=== PATIENT | female | born 1985 | race Caucasian/White ===

== ENCOUNTER 2021-07-30 18:14 | Inpatient (IN) | payer OTHER ==
[2021-07-30] MEDS ORDERED: MEROPENEM 500 MG in DEXTROSE 5%-WATER 100 ML IVPB ONE (21:46)
[2021-07-30] MEDS ORDERED: MEROPENEM 1 GM VIAL (RESTRICTED TO ID) IVPB ONE (22:08)
[2021-07-30] MEDS ORDERED: MEROPENEM 500 MG VIAL (RESTRICTED TO ID) IVPB ONE (22:17)
[2021-07-30 23:11] LABS: BASO % 0.3 % (0-2.0); EOS % 1.6 % (0-4.5); HEMATOCRIT 42.1 % (32.4-45.2); HEMOGLOBIN 14.4 GM/dL (10.7-15.3); LYMPH % 26.7 % (8-40); MCH 29.8 pg (25.7-33.7); MCHC 34.2 g/dl (32.0-36.0); MEAN CELL VOLUME 87.1 fl (80-96); MEAN PLT VOLUME 7.1 fl (7.5-11.1); MONO % 7.6 % (3.8-10.2); NEUT % 63.8 % (42.8-82.8); PLATELET COUNT 278 10^3/uL (134-434); RBC 4.84 M/mm3 (3.60-5.2); RDW 12.6 % (11.6-15.6); WHITE BLOOD COUNT 5.9 K/mm3 (4.0-10.0)
[2021-07-30 23:17] LABS: INR 1.07 (0.83-1.09)
[2021-07-30 23:20] LABS: ACTIVATED PTT 36.1 SECONDS (25.2-36.5)
[2021-07-30 23:24] LABS: EPI CELLS >36 /uL (0-25.1); HYALINE CASTS 4 /uL (0-3.1); PH,URINE 7.5 (5.0-8.0); URINE APPEARANCE CLOUDY; URINE BACTERIA 5852 /uL (0-1359); URINE BILIRUBIN NEGATIVE (NEGATIVE); URINE COLOR YELLOW; URINE GLUCOSE (UA) NEGATIVE (NEGATIVE); URINE KETONE NEGATIVE (NEGATIVE); URINE LEUK ESTERASE 3+ (NEGATIVE); URINE NITRITE POSITIVE (NEGATIVE); URINE PROTEIN NEGATIVE (NEGATIVE); URINE RBC 14 /uL (0-23.9); URINE UROBILINOGEN 0.2 mg/dL (0.2-1.0); URINE WBC 581 /uL (0-25.8)
[2021-07-30 23:36] LABS: ALBUMIN 3.4 g/dl (3.4-5.0); BLOOD UREA NITROGEN 5.6 mg/dL (7-18); CALCIUM 8.8 mg/dL (8.5-10.1)
[2021-07-30 23:39] LABS: CREATININE 0.4 mg/dL (0.55-1.3)
[2021-07-30 23:40] LABS: BILIRUBIN,TOTAL 0.3 mg/dL (0.2-1); TOT PROT 7.8 g/dl (6.4-8.2)
[2021-07-31] MEDS ORDERED: [UNRECOGNIZED DRUG - OTHER] PO SCH (02:00)
[2021-07-31] MEDS ORDERED: ACETAMINOPHEN PO SCH (02:00)
[2021-07-31] MEDS ORDERED: IBUPROFEN 100 MG/5 ML UNIT DOSE CUPS PEG PRN (02:00)
[2021-07-31 04:31] VITALS: BMI 14.8
[2021-07-31] MEDS ORDERED: DEXTROSE 5%-WATER 100 ML IVPB ONE ×3 (06:10→16:28)
[2021-07-31] MEDS ORDERED: MEROPENEM 500 MG VIAL (RESTRICTED TO ID) IVPB ONE ×3 (06:10→16:28)
[2021-07-31] MEDS: MEROPENEM 500 MG in DEXTROSE 5%-WATER 100 ML IVPB SCH ×3 (06:13→18:11)
[2021-07-31] MEDS: LEVOTHYROXINE NA 75 MCG TABLET (FP) PEG SCH (06:14)
[2021-07-31] MEDS: INSULIN SLIDING SCALE (NOVOLOG) 1 VIAL SQ SCH ×4 (07:10→21:33)
[2021-07-31] MEDS: IPRATROPIUM BR 0.02% 0.5 MG/2.5 ML VIAL.NEB. NEB SCH ×4 (07:50→20:13)
[2021-07-31 08:19] LABS: HEMATOCRIT 38.5 % (32.4-45.2); HEMOGLOBIN 13.3 GM/dL (10.7-15.3); MCH 30.3 pg (25.7-33.7); MCHC 34.7 g/dl (32.0-36.0); MEAN CELL VOLUME 87.3 fl (80-96); MEAN PLT VOLUME 6.9 fl (7.5-11.1); PLATELET COUNT 285 10^3/uL (134-434); RBC 4.41 M/mm3 (3.60-5.2); RDW 12.6 % (11.6-15.6); WHITE BLOOD COUNT 5.6 K/mm3 (4.0-10.0)
[2021-07-31 08:51] LABS: ALBUMIN 2.8 g/dl (3.4-5.0); BILIRUBIN,TOTAL 0.3 mg/dL (0.2-1)
[2021-07-31 08:52] LABS: CALCIUM 8.6 mg/dL (8.5-10.1); MAGNESIUM 1.5 mg/dL (1.8-2.4)
[2021-07-31 08:55] LABS: CREATININE 0.4 mg/dL (0.55-1.3); PHOSPHOROUS 4.2 mg/dL (2.5-4.9)
[2021-07-31] MEDS ORDERED: ENOXAPARIN NA (PORCINE) 30 MG/0.3 ML DISP.SYRIN SQ SCH (10:00)
[2021-07-31] MEDS ORDERED: PATIENT'S OWN MEDICATION (NON-FORMULARY) (Sennosides [Senna] 8.6 MG Capsule) PO SCH (10:00)
[2021-07-31] MEDS ORDERED: NEOMYCIN/BACI/POLY/HC TOPICAL OINT 15 GM TUBE TP SCH (10:00)
[2021-07-31] MEDS ORDERED: PT OWN MED DRAWER 7, Y5N ONE ×2 (10:04→14:02)
[2021-07-31] MEDS: ENOXAPARIN NA (PORCINE) 30 MG/0.3 ML DISP.SYRIN SQ SCH (11:02)
[2021-07-31] MEDS: Lacosamide 50 MG/5 ML ORAL SOLUTION UNIT CUPS PEG SCH ×2 (11:08→21:32)
[2021-07-31] MEDS: FAMOTIDINE 40 MG/5 ML ORAL SUSPENSION PEG SCH (15:12)
[2021-07-31] MEDS ORDERED: INSULIN (NOVOLOG) ASPART 100 UNITS/ML 10ML VIAL ONE (20:38)
[2021-07-31] MEDS: PERAMPANEL 2 MG GT SCH (21:21)
[2021-07-31] MEDS: MAGNESIUM HYDROX 2400MG/30ML ORAL SUSPENSION 30 ML CUP PEG SCH (21:31)
[2021-07-31] MEDS: SENNOSIDES 8.8 MG/5 ML BULK BOTTLE PEG SCH (21:33)
[2021-07-31] MEDS: [UNRECOGNIZED DRUG - OTHER] PO SCH (21:34)
[2021-07-31] MEDS: TACROLIMUS 0.1% PO SCH (21:34)
[2021-08-01] MEDS ORDERED: MEROPENEM 500 MG VIAL (RESTRICTED TO ID) IVPB ONE ×3 (01:22→17:08)
[2021-08-01] MEDS ORDERED: DEXTROSE 5%-WATER 100 ML IVPB ONE ×3 (01:22→17:08)
[2021-08-01] MEDS: MEROPENEM 500 MG in DEXTROSE 5%-WATER 100 ML IVPB SCH ×3 (01:26→17:19)
[2021-08-01] MEDS: INSULIN SLIDING SCALE (NOVOLOG) 1 VIAL SQ SCH ×4 (06:24→21:43)
[2021-08-01] MEDS: LEVOTHYROXINE NA 75 MCG TABLET (FP) PEG SCH (06:26)
[2021-08-01] MEDS: IPRATROPIUM BR 0.02% 0.5 MG/2.5 ML VIAL.NEB. NEB SCH ×4 (07:35→20:00)
[2021-08-01 08:00] LABS: BASO % 0.4 % (0-2.0); EOS % 2.3 % (0-4.5); HEMOGLOBIN 13.5 GM/dL (10.7-15.3); LYMPH % 22.5 % (8-40); MCHC 34.7 g/dl (32.0-36.0); MEAN CELL VOLUME 86.5 fl (80-96); MEAN PLT VOLUME 6.9 fl (7.5-11.1); MONO % 9.9 % (3.8-10.2); NEUT % 64.9 % (42.8-82.8); PLATELET COUNT 269 10^3/uL (134-434); RDW 12.3 % (11.6-15.6); WHITE BLOOD COUNT 5.1 K/mm3 (4.0-10.0)
[2021-08-01 08:27] LABS: BLOOD UREA NITROGEN 10.5 mg/dL (7-18); CALCIUM 8.8 mg/dL (8.5-10.1); MAGNESIUM 2.2 mg/dL (1.8-2.4)
[2021-08-01 08:30] LABS: BILIRUBIN,TOTAL 0.3 mg/dL (0.2-1); CREATININE 0.4 mg/dL (0.55-1.3)
[2021-08-01] MEDS ORDERED: NEOMYCIN/BACI/POLY/HC TOPICAL OINT 15 GM TUBE TP SCH (10:00)
[2021-08-01] MEDS: ENOXAPARIN NA (PORCINE) 30 MG/0.3 ML DISP.SYRIN SQ SCH (10:20)
[2021-08-01] MEDS: MAGNESIUM HYDROX 2400MG/30ML ORAL SUSPENSION 30 ML CUP PEG SCH (10:21)
[2021-08-01] MEDS: FAMOTIDINE 40 MG/5 ML ORAL SUSPENSION PEG SCH (10:21)
[2021-08-01] MEDS: SENNOSIDES 8.8 MG/5 ML BULK BOTTLE PEG SCH (10:22)
[2021-08-01] MEDS: Lacosamide 50 MG/5 ML ORAL SOLUTION UNIT CUPS PEG SCH ×2 (10:23→21:44)
[2021-08-01] MEDS: TACROLIMUS 0.1% PO SCH ×2 (10:24→21:45)
[2021-08-01] MEDS: [UNRECOGNIZED DRUG - OTHER] PO SCH ×2 (10:24→21:45)
[2021-08-01] MEDS ORDERED: PT OWN MED DRAWER 7, Y5N ONE (10:28)
[2021-08-01] MEDS: PERAMPANEL 2 MG GT SCH (21:44)
[2021-08-02] MEDS ORDERED: MEROPENEM 500 MG VIAL (RESTRICTED TO ID) IVPB ONE ×3 (01:15→17:41)
[2021-08-02] MEDS ORDERED: DEXTROSE 5%-WATER 100 ML IVPB ONE ×3 (01:16→17:41)
[2021-08-02] MEDS: MEROPENEM 500 MG in DEXTROSE 5%-WATER 100 ML IVPB SCH ×3 (01:54→17:48)
[2021-08-02] MEDS: LEVOTHYROXINE NA 75 MCG TABLET (FP) PEG SCH (06:16)
[2021-08-02] MEDS: INSULIN SLIDING SCALE (NOVOLOG) 1 VIAL SQ SCH ×4 (06:16→22:07)
[2021-08-02 07:46] LABS: BASO % 0.5 % (0-2.0); HEMATOCRIT 41.5 % (32.4-45.2); HEMOGLOBIN 14.4 GM/dL (10.7-15.3); LYMPH % 27.2 % (8-40); MCH 30.2 pg (25.7-33.7); MCHC 34.6 g/dl (32.0-36.0); MEAN CELL VOLUME 87.2 fl (80-96); MEAN PLT VOLUME 7.6 fl (7.5-11.1); MONO % 11.6 % (3.8-10.2); NEUT % 58.7 % (42.8-82.8); PLATELET COUNT 279 10^3/uL (134-434); RBC 4.76 M/mm3 (3.60-5.2); RDW 12.3 % (11.6-15.6); WHITE BLOOD COUNT 4.6 K/mm3 (4.0-10.0)
[2021-08-02] MEDS: IPRATROPIUM BR 0.02% 0.5 MG/2.5 ML VIAL.NEB. NEB SCH ×4 (08:07→19:47)
[2021-08-02 08:22] LABS: ALBUMIN 3.1 g/dl (3.4-5.0); BLOOD UREA NITROGEN 5.4 mg/dL (7-18)
[2021-08-02 08:23] LABS: BILIRUBIN,TOTAL 0.2 mg/dL (0.2-1); TOT PROT 7.4 g/dl (6.4-8.2)
[2021-08-02 08:25] LABS: CALCIUM 9.1 mg/dL (8.5-10.1)
[2021-08-02 08:26] LABS: CREATININE 0.3 mg/dL (0.55-1.3); MAGNESIUM 2.3 mg/dL (1.8-2.4)
[2021-08-02] MEDS ORDERED: PT OWN MED DRAWER 7, Y5N ONE (10:40)
[2021-08-02] MEDS: ENOXAPARIN NA (PORCINE) 30 MG/0.3 ML DISP.SYRIN SQ SCH (10:46)
[2021-08-02] MEDS: MAGNESIUM HYDROX 2400MG/30ML ORAL SUSPENSION 30 ML CUP PEG SCH (10:46)
[2021-08-02] MEDS: FAMOTIDINE 40 MG/5 ML ORAL SUSPENSION PEG SCH (10:47)
[2021-08-02] MEDS: SENNOSIDES 8.8 MG/5 ML BULK BOTTLE PEG SCH (10:48)
[2021-08-02] MEDS: Lacosamide 50 MG/5 ML ORAL SOLUTION UNIT CUPS PEG SCH ×2 (10:48→22:17)
[2021-08-02] MEDS: TACROLIMUS 0.1% PO SCH ×3 (10:50→22:18)
[2021-08-02] MEDS: [UNRECOGNIZED DRUG - OTHER] PO SCH ×3 (10:50→22:18)
[2021-08-02] MEDS ORDERED: INSULIN (NOVOLOG) ASPART 100 UNITS/ML 10ML VIAL ONE (11:51)
[2021-08-02] MEDS ORDERED: BISACODYL 10 MG SUPP.RECT PR PRN (14:22)
[2021-08-02] MEDS: PERAMPANEL 2 MG GT SCH (22:16)
[2021-08-03] MEDS ORDERED: DEXTROSE 5%-WATER 100 ML IVPB ONE ×3 (03:08→18:26)
[2021-08-03] MEDS ORDERED: MEROPENEM 500 MG VIAL (RESTRICTED TO ID) IVPB ONE ×3 (03:08→18:26)
[2021-08-03] MEDS: MEROPENEM 500 MG in DEXTROSE 5%-WATER 100 ML IVPB SCH ×3 (03:10→18:28)
[2021-08-03] MEDS: LEVOTHYROXINE NA 75 MCG TABLET (FP) PEG SCH (06:22)
[2021-08-03] MEDS: INSULIN SLIDING SCALE (NOVOLOG) 1 VIAL SQ SCH ×4 (06:52→23:24)
[2021-08-03] MEDS: IPRATROPIUM BR 0.02% 0.5 MG/2.5 ML VIAL.NEB. NEB SCH ×4 (09:02→20:18)
[2021-08-03 09:31] LABS: BASO % 0.4 % (0-2.0); HEMATOCRIT 39.5 % (32.4-45.2); HEMOGLOBIN 13.8 GM/dL (10.7-15.3); LYMPH % 29.7 % (8-40); MCHC 34.9 g/dl (32.0-36.0); MEAN CELL VOLUME 85.9 fl (80-96); NEUT % 54.9 % (42.8-82.8); PLATELET COUNT 268 10^3/uL (134-434); RDW 12.5 % (11.6-15.6)
[2021-08-03] MEDS: Lacosamide 50 MG/5 ML ORAL SOLUTION UNIT CUPS PEG SCH ×2 (10:15→22:36)
[2021-08-03] MEDS: MAGNESIUM HYDROX 2400MG/30ML ORAL SUSPENSION 30 ML CUP PEG SCH (10:15)
[2021-08-03] MEDS: FAMOTIDINE 40 MG/5 ML ORAL SUSPENSION PEG SCH (10:15)
[2021-08-03] MEDS: ENOXAPARIN NA (PORCINE) 30 MG/0.3 ML DISP.SYRIN SQ SCH (10:16)
[2021-08-03] MEDS: SENNOSIDES 8.8 MG/5 ML BULK BOTTLE PEG SCH (10:16)
[2021-08-03] MEDS: [UNRECOGNIZED DRUG - OTHER] PO SCH ×2 (10:17→22:37)
[2021-08-03] MEDS: TACROLIMUS 0.1% PO SCH ×2 (10:17→22:37)
[2021-08-03 10:37] LABS: ALBUMIN 3.1 g/dl (3.4-5.0); BLOOD UREA NITROGEN 8.1 mg/dL (7-18); CALCIUM 8.5 mg/dL (8.5-10.1); MAGNESIUM 2.3 mg/dL (1.8-2.4)
[2021-08-03 10:40] LABS: CREATININE 0.4 mg/dL (0.55-1.3)
[2021-08-03 10:42] LABS: BILIRUBIN,TOTAL 0.2 mg/dL (0.2-1); TOT PROT 7.3 g/dl (6.4-8.2)
[2021-08-03] MEDS ORDERED: PT OWN MED DRAWER 7, Y5N ONE (18:06)
[2021-08-03] MEDS: PERAMPANEL 2 MG GT SCH (22:35)
[2021-08-04] MEDS ORDERED: DEXTROSE 5%-WATER 100 ML IVPB ONE ×3 (01:51→17:00)
[2021-08-04] MEDS ORDERED: MEROPENEM 500 MG VIAL (RESTRICTED TO ID) IVPB ONE ×3 (01:51→17:00)
[2021-08-04] MEDS: MEROPENEM 500 MG in DEXTROSE 5%-WATER 100 ML IVPB SCH ×3 (01:55→17:14)
[2021-08-04] MEDS: INSULIN SLIDING SCALE (NOVOLOG) 1 VIAL SQ SCH ×4 (06:07→22:43)
[2021-08-04] MEDS: LEVOTHYROXINE NA 75 MCG TABLET (FP) PEG SCH (06:07)
[2021-08-04] MEDS: IPRATROPIUM BR 0.02% 0.5 MG/2.5 ML VIAL.NEB. NEB SCH ×4 (07:22→20:16)
[2021-08-04 07:45] LABS: CALCIUM 8.6 mg/dL (8.5-10.1)
[2021-08-04 07:46] LABS: BASO % 0.2 % (0-2.0); BLOOD UREA NITROGEN 7.4 mg/dL (7-18); EOS % 2.6 % (0-4.5); HEMATOCRIT 39.1 % (32.4-45.2); HEMOGLOBIN 13.8 GM/dL (10.7-15.3); LYMPH % 30.7 % (8-40); MAGNESIUM 2.4 mg/dL (1.8-2.4); MCH 30.8 pg (25.7-33.7); MCHC 35.3 g/dl (32.0-36.0); MEAN CELL VOLUME 87.1 fl (80-96); MEAN PLT VOLUME 7.2 fl (7.5-11.1); MONO % 14.9 % (3.8-10.2); NEUT % 51.6 % (42.8-82.8); PLATELET COUNT 274 10^3/uL (134-434); RBC 4.49 M/mm3 (3.60-5.2); RDW 12.3 % (11.6-15.6)
[2021-08-04 07:49] LABS: CREATININE 0.4 mg/dL (0.55-1.3)
[2021-08-04 07:50] LABS: BILIRUBIN,TOTAL 0.2 mg/dL (0.2-1)
[2021-08-04] MEDS ORDERED: PT OWN MED DRAWER 7, Y5N ONE ×2 (09:50→22:37)
[2021-08-04] MEDS: FAMOTIDINE 40 MG/5 ML ORAL SUSPENSION PEG SCH (10:14)
[2021-08-04] MEDS: MAGNESIUM HYDROX 2400MG/30ML ORAL SUSPENSION 30 ML CUP PEG SCH (10:15)
[2021-08-04] MEDS: Lacosamide 50 MG/5 ML ORAL SOLUTION UNIT CUPS PEG SCH ×2 (10:15→23:48)
[2021-08-04] MEDS: ENOXAPARIN NA (PORCINE) 30 MG/0.3 ML DISP.SYRIN SQ SCH (10:15)
[2021-08-04] MEDS: SENNOSIDES 8.8 MG/5 ML BULK BOTTLE PEG SCH (10:16)
[2021-08-04] MEDS: TACROLIMUS 0.1% PO SCH ×2 (10:17→22:45)
[2021-08-04] MEDS: [UNRECOGNIZED DRUG - OTHER] PO SCH ×2 (10:17→22:45)
[2021-08-04] MEDS: PERAMPANEL 2 MG GT SCH (22:48)
[2021-08-05] MEDS ORDERED: DEXTROSE 5%-WATER 100 ML IVPB ONE ×3 (01:21→17:15)
[2021-08-05] MEDS ORDERED: MEROPENEM 500 MG VIAL (RESTRICTED TO ID) IVPB ONE ×3 (01:21→17:14)
[2021-08-05] MEDS: MEROPENEM 500 MG in DEXTROSE 5%-WATER 100 ML IVPB SCH ×3 (01:23→17:16)
[2021-08-05] MEDS: INSULIN SLIDING SCALE (NOVOLOG) 1 VIAL SQ SCH ×4 (06:11→22:34)
[2021-08-05] MEDS: LEVOTHYROXINE NA 75 MCG TABLET (FP) PEG SCH (06:50)
[2021-08-05 06:52] LABS: BASO % 0.3 % (0-2.0); EOS % 2.3 % (0-4.5); HEMATOCRIT 38.3 % (32.4-45.2); HEMOGLOBIN 13.5 GM/dL (10.7-15.3); LYMPH % 36.4 % (8-40); MCH 30.5 pg (25.7-33.7); MCHC 35.3 g/dl (32.0-36.0); MEAN CELL VOLUME 86.4 fl (80-96); MEAN PLT VOLUME 7.3 fl (7.5-11.1); MONO % 13.8 % (3.8-10.2); NEUT % 47.2 % (42.8-82.8); PLATELET COUNT 294 10^3/uL (134-434); RBC 4.43 M/mm3 (3.60-5.2); RDW 11.9 % (11.6-15.6)
[2021-08-05 07:14] LABS: ALBUMIN 2.9 g/dl (3.4-5.0); BLOOD UREA NITROGEN 8.4 mg/dL (7-18); CALCIUM 8.6 mg/dL (8.5-10.1); MAGNESIUM 2.4 mg/dL (1.8-2.4)
[2021-08-05 07:18] LABS: CREATININE 0.3 mg/dL (0.55-1.3)
[2021-08-05 07:19] LABS: BILIRUBIN,TOTAL 0.2 mg/dL (0.2-1); TOT PROT 6.9 g/dl (6.4-8.2)
[2021-08-05] MEDS: IPRATROPIUM BR 0.02% 0.5 MG/2.5 ML VIAL.NEB. NEB SCH ×4 (07:20→20:22)
[2021-08-05] MEDS: MAGNESIUM HYDROX 2400MG/30ML ORAL SUSPENSION 30 ML CUP PEG SCH (09:36)
[2021-08-05] MEDS: FAMOTIDINE 40 MG/5 ML ORAL SUSPENSION PEG SCH (09:37)
[2021-08-05] MEDS: Lacosamide 50 MG/5 ML ORAL SOLUTION UNIT CUPS PEG SCH ×2 (09:38→22:28)
[2021-08-05] MEDS: ENOXAPARIN NA (PORCINE) 30 MG/0.3 ML DISP.SYRIN SQ SCH (09:41)
[2021-08-05] MEDS: [UNRECOGNIZED DRUG - OTHER] PO SCH ×2 (09:42→22:32)
[2021-08-05] MEDS: TACROLIMUS 0.1% PO SCH ×2 (09:42→22:32)
[2021-08-05] MEDS: SENNOSIDES 8.8 MG/5 ML BULK BOTTLE PEG SCH (11:24)
[2021-08-05] MEDS ORDERED: PT OWN MED DRAWER 7, Y5N ONE (22:25)
[2021-08-05] MEDS: PERAMPANEL 2 MG GT SCH (22:31)
[2021-08-06] MEDS: MEROPENEM 500 MG in DEXTROSE 5%-WATER 100 ML IVPB SCH ×2 (02:30→10:02)
[2021-08-06] MEDS: INSULIN SLIDING SCALE (NOVOLOG) 1 VIAL SQ SCH ×2 (07:18→11:55)
[2021-08-06] MEDS: LEVOTHYROXINE NA 75 MCG TABLET (FP) PEG SCH (07:19)
[2021-08-06] MEDS: IPRATROPIUM BR 0.02% 0.5 MG/2.5 ML VIAL.NEB. NEB SCH ×2 (07:50→12:30)
[2021-08-06 08:33] LABS: BASO % 0.4 % (0-2.0); EOS % 3.5 % (0-4.5); HEMATOCRIT 39.5 % (32.4-45.2); HEMOGLOBIN 13.7 GM/dL (10.7-15.3); MCH 30.2 pg (25.7-33.7); MCHC 34.8 g/dl (32.0-36.0); MEAN CELL VOLUME 86.7 fl (80-96); MEAN PLT VOLUME 7.4 fl (7.5-11.1); MONO % 15.7 % (3.8-10.2); NEUT % 36.4 % (42.8-82.8); PLATELET COUNT 277 10^3/uL (134-434); RBC 4.55 M/mm3 (3.60-5.2); RDW 12.4 % (11.6-15.6); WHITE BLOOD COUNT 3.7 K/mm3 (4.0-10.0)
[2021-08-06 08:56] LABS: BLOOD UREA NITROGEN 8.4 mg/dL (7-18); MAGNESIUM 2.4 mg/dL (1.8-2.4)
[2021-08-06 08:59] LABS: CREATININE 0.3 mg/dL (0.55-1.3)
[2021-08-06 09:01] LABS: BILIRUBIN,TOTAL 0.3 mg/dL (0.2-1)
[2021-08-06] MEDS ORDERED: PT OWN MED DRAWER 7, Y5N ONE (09:56)
[2021-08-06] MEDS: Lacosamide 50 MG/5 ML ORAL SOLUTION UNIT CUPS PEG SCH (09:58)
[2021-08-06] MEDS: ENOXAPARIN NA (PORCINE) 30 MG/0.3 ML DISP.SYRIN SQ SCH (09:58)
[2021-08-06] MEDS: MAGNESIUM HYDROX 2400MG/30ML ORAL SUSPENSION 30 ML CUP PEG SCH (10:00)
[2021-08-06] MEDS: [UNRECOGNIZED DRUG - OTHER] PO SCH (10:02)
[2021-08-06] MEDS: TACROLIMUS 0.1% PO SCH (10:02)
[2021-08-06] MEDS: FAMOTIDINE 40 MG/5 ML ORAL SUSPENSION PEG SCH (10:02)
[2021-08-06] MEDS: SENNOSIDES 8.8 MG/5 ML BULK BOTTLE PEG SCH (10:06)
[2021-08-06 11:36] VITALS: BP 138/80; PULSE 85; TEMP 98
== END 2021-08-06 13:47 | disposition home or self-care (01) | DRG 689 ==
LOC: JER 18:14 → JERBED 23:50 → J7W 07-31 03:18
PROVIDERS: ADMIT Internal Medicine; ATTEND Nurse Practitioner Family
DX: N39.0 Urinary tract infection, site not specified (principal); R53.2 Functional quadriplegia; G31.82 Leigh's disease; F73 Profound intellectual disabilities; G40.909 Epilepsy, unspecified, not intractable, without status epilepticus; E03.9 Hypothyroidism, unspecified; E11.9 Type 2 diabetes mellitus without complications; L30.9 Dermatitis, unspecified; M41.9 Scoliosis, unspecified; K59.00 Constipation, unspecified; E06.3 Autoimmune thyroiditis
CPT/HCPCS: 36415; 71045-TC-FY; 80053; 81003; 82962; 83605; 83735; 84100; 85025; 85027; 85610; 85730; 87040; 87086; 87186; 93005; 93010; 94640; 99285-25; C9803; U0003; U0005

== ENCOUNTER 2021-12-05 04:54 | Inpatient (IN) | payer OTHER ==
[2021-12-05] MEDS ORDERED: RAPID SEQUENCE INTUBATION KIT NR ONE (04:56)
[2021-12-05] MEDS ORDERED: PROPOFOL 1,000,000 MCG/100 ML VIAL ONE (05:13)
[2021-12-05] MEDS ORDERED: DEXAMETHASONE SOD PHOSPHATE 10 MG/1 ML VIAL ONE (05:24)
[2021-12-05] MEDS ORDERED: ETOMIDATE 40 MG/20 ML VIAL IVPUSH ONE (05:30)
[2021-12-05] MEDS ORDERED: PROPOFOL 1,000,000 MCG/100 ML VIAL IVPB SCH (05:30)
[2021-12-05] MEDS ORDERED: ROCURONIUM BROMIDE 50 MG/5 ML VIAL IV ONE (05:30)
[2021-12-05] MEDS ORDERED: DEXAMETHASONE SOD PHOSPHATE 4 MG/1 ML VIAL IVPUSH ONE (05:35)
[2021-12-05 05:51] LABS: ARTERIAL BLD GAS O2 SATURATION 99.9 % (95-98); ARTERIAL BLOOD GAS BASE EXCESS -3.4 mmol/L (-2-2); ARTERIAL BLOOD GAS pH 7.388 (7.350-7.450)
[2021-12-05 05:55] LABS: INR 1.01 (0.83-1.09); PROTHROMBIN TIME (PATIENT) 11.6 SEC (9.7-13.0)
[2021-12-05 05:58] LABS: ACTIVATED PTT 21.7 SECONDS (25.2-36.5)
[2021-12-05 06:15] LABS: EPI CELLS >36 /uL (0-25.1); HYALINE CASTS 119 /uL (0-3.1); PH,URINE 7.5 (5.0-8.0); URINE APPEARANCE TURBID; URINE BACTERIA >9,000 /uL (0-1359); URINE BILIRUBIN NEGATIVE (NEGATIVE); URINE COLOR YELLOW; URINE GLUCOSE (UA) NEGATIVE (NEGATIVE); URINE KETONE NEGATIVE (NEGATIVE); URINE LEUK ESTERASE 3+ (NEGATIVE); URINE NITRITE POSITIVE (NEGATIVE); URINE PROTEIN 2+ (NEGATIVE); URINE UROBILINOGEN 0.2 mg/dL (0.2-1.0); URINE WBC 18215 /uL (0-25.8)
[2021-12-05] MEDS ORDERED: MEROPENEM 1 GM in DEXTROSE 5%-WATER 100 ML IVPB ONE (06:22)
[2021-12-05] MEDS ORDERED: VANCOMYCIN 1 GM in D5W (PRE-DOCKED) 1,000 MG/250 ML IVPB ONE (06:22)
[2021-12-05 06:23] LABS: BASO % 0.4 % (0-2.0); EOS % 0.7 % (0-4.5); HEMATOCRIT 42.9 % (32.4-45.2); HEMOGLOBIN 14.9 GM/dL (10.7-15.3); MCH 30.2 pg (25.7-33.7); MCHC 34.7 g/dl (32.0-36.0); MEAN CELL VOLUME 86.9 fl (80-96); MEAN PLT VOLUME 8.3 fl (7.5-11.1); MONO % 6.4 % (3.8-10.2); NEUT % 72.5 % (42.8-82.8); PLATELET COUNT 342 10^3/uL (134-434); RBC 4.94 M/mm3 (3.60-5.2); RDW 12.8 % (11.6-15.6); WHITE BLOOD COUNT 12.3 K/mm3 (4.0-10.0)
[2021-12-05] MEDS ORDERED: VANCOMYCIN 1 GRAM (PRE-DOCKED) 1,000 MG/250 ML BAG IVPB ONE (06:35)
[2021-12-05 06:50] LABS: CALCIUM 8.1 mg/dL (8.5-10.1)
[2021-12-05 06:52] LABS: ALBUMIN 3.1 g/dl (3.4-5.0)
[2021-12-05 06:55] LABS: CREATININE 0.5 mg/dL (0.55-1.3)
[2021-12-05 06:57] LABS: BILIRUBIN,TOTAL 0.2 mg/dL (0.2-1); TOT PROT 7.4 g/dl (6.4-8.2)
[2021-12-05 07:00] LABS: N-TERMINAL BNP 3610.4 pg/ml (5-125)
[2021-12-05] MEDS ORDERED: FUROSEMIDE 40 MG/4 ML INJECTABLE VIAL IVPUSH ONE (07:02)
[2021-12-05] MEDS ORDERED: MIDAZOLAM IN 0.9 % SOD.CHLORID 1 MG/1 ML PLAST..BAG ONE (07:33)
[2021-12-05] MEDS ORDERED: MEROPENEM 1 GM VIAL (RESTRICTED TO ID) IVPB ONE ×2 (07:33→17:56)
[2021-12-05] MEDS ORDERED: FUROSEMIDE 40 MG/4 ML INJECTABLE VIAL ONE (07:34)
[2021-12-05] MEDS: MIDAZOLAM IN 0.9 % SOD.CHLORID 100 MG/100 ML PLAST..BAG IVPB SCH (07:45)
[2021-12-05] MEDS ORDERED: NOREPINEPHRINE BITARTRATE 4 MG/4 ML ML IV ONE ×2 (09:29→09:30)
[2021-12-05] MEDS: NOREPINEPHRINE D5W PREMIX 16,000 MCG/500 ML BAG IVPB SCH (09:44)
[2021-12-05] MEDS ORDERED: SODIUM CHLORIDE 500 ML IV STA (14:45)
[2021-12-05] MEDS ORDERED: SODIUM CHLORIDE 1,000 ML IV SCH (15:45)
[2021-12-05 17:50] LABS: ALBUMIN 3.3 g/dl (3.4-5.0); BLOOD UREA NITROGEN 9.3 mg/dL (7-18); CALCIUM 8.9 mg/dL (8.5-10.1); MAGNESIUM 1.8 mg/dL (1.8-2.4)
[2021-12-05 17:54] LABS: CREATININE 0.6 mg/dL (0.55-1.3)
[2021-12-05 17:56] LABS: BILIRUBIN,TOTAL 0.3 mg/dL (0.2-1); TOT PROT 7.3 g/dl (6.4-8.2)
[2021-12-05] MEDS ORDERED: DEXTROSE 5%-WATER 100 ML IVPB ONE (17:56)
[2021-12-05] MEDS ORDERED: MEROPENEM 1 GM in DEXTROSE 5%-WATER 100 ML IVPB SCH (18:00)
[2021-12-05] MEDS: DEXMEDETOMIDINE IN 0.9 % NACL 400 MCG/100 ML VIAL IVPB SCH (18:09)
[2021-12-05] MEDS: MEROPENEM 1 GM in DEXTROSE 5%-WATER 100 ML IVPB SCH (18:09)
[2021-12-05] MEDS ORDERED: SODIUM CHLORIDE 0.45% 1,000 ML IV SCH (18:15)
[2021-12-05] MEDS: MUPIROCIN 2% TOPICAL OINTMENT FOR DECOLONIZATION NS SCH ×2 (19:23→22:10)
[2021-12-05] MEDS: levOCARNitine 500 MG/5 ML SOLUTION GT SCH (22:09)
[2021-12-05] MEDS: CHLORHEXIDINE GLUCONATE 4% CLEANSER FOR DECOLONIZATION TP SCH (22:10)
[2021-12-05] MEDS ORDERED: diazePAM CARPU-JECT 10 MG/2 ML DISP.SYRIN IVPUSH PRN (23:16)
[2021-12-05 23:19] LABS: CALCIUM 7.6 mg/dL (8.5-10.1)
[2021-12-05 23:20] LABS: BLOOD UREA NITROGEN 8.5 mg/dL (7-18)
[2021-12-05 23:23] LABS: CREATININE 0.5 mg/dL (0.55-1.3)
[2021-12-06] MEDS: Lacosamide 50 MG/5 ML ORAL SOLUTION UNIT CUPS GT SCH ×3 (00:21→21:33)
[2021-12-06] MEDS ORDERED: DEXTROSE 5%-WATER 100 ML IVPB ONE ×3 (02:09→16:27)
[2021-12-06] MEDS ORDERED: MEROPENEM 1 GM VIAL (RESTRICTED TO ID) IVPB ONE ×3 (02:09→16:27)
[2021-12-06] MEDS: MEROPENEM 1 GM in DEXTROSE 5%-WATER 100 ML IVPB SCH ×3 (02:11→18:00)
[2021-12-06 03:46] LABS: BLOOD UREA NITROGEN 9.2 mg/dL (7-18); CALCIUM 7.8 mg/dL (8.5-10.1)
[2021-12-06 03:49] LABS: CREATININE 0.5 mg/dL (0.55-1.3)
[2021-12-06] MEDS: LEVOTHYROXINE NA 75 MCG TABLET (FP) PEG SCH (06:12)
[2021-12-06] MEDS: VANCOMYCIN 1 GRAM (PRE-DOCKED) 1,000 MG/250 ML BAG IVPB SCH (06:14)
[2021-12-06] MEDS: levOCARNitine 500 MG/5 ML SOLUTION GT SCH ×3 (06:14→21:33)
[2021-12-06 07:54] LABS: HEMATOCRIT 36.4 % (32.4-45.2); MCH 30.3 pg (25.7-33.7); MCHC 35.6 g/dl (32.0-36.0); PLATELET COUNT 240 10^3/uL (134-434); RBC 4.28 M/mm3 (3.60-5.2); RDW 12.5 % (11.6-15.6); WHITE BLOOD COUNT 8.6 K/mm3 (4.0-10.0)
[2021-12-06] MEDS: MIDAZOLAM IN 0.9 % SOD.CHLORID 100 MG/100 ML PLAST..BAG IVPB SCH (07:59)
[2021-12-06 08:20] LABS: ALBUMIN 2.8 g/dl (3.4-5.0); BLOOD UREA NITROGEN 8.8 mg/dL (7-18); CALCIUM 7.6 mg/dL (8.5-10.1)
[2021-12-06 08:22] LABS: PHOSPHOROUS 3.4 mg/dL (2.5-4.9)
[2021-12-06 08:24] LABS: BILIRUBIN,TOTAL 0.4 mg/dL (0.2-1); CREATININE 0.5 mg/dL (0.55-1.3); TOT PROT 6.4 g/dl (6.4-8.2)
[2021-12-06] MEDS: SODIUM CHLORIDE 1,000 ML IV SCH (09:31)
[2021-12-06] MEDS: PERAMPANEL 2 MG GT SCH (10:04)
[2021-12-06] MEDS: ZINC SULFATE 220 MG CAPSULE (FP) GT SCH (10:11)
[2021-12-06] MEDS: ENOXAPARIN NA (PORCINE) 40 MG/0.4 ML DISP.SYRIN SQ SCH (10:11)
[2021-12-06] MEDS: THIAMINE HCL 100 MG TABLET (FP) NGT SCH (10:11)
[2021-12-06] MEDS: FAMOTIDINE 40 MG/5 ML ORAL SUSPENSION PEG SCH (10:11)
[2021-12-06] MEDS: MUPIROCIN 2% TOPICAL OINTMENT FOR DECOLONIZATION NS SCH ×2 (10:13→21:34)
[2021-12-06] MEDS: MAGNESIUM HYDROX 2400MG/30ML ORAL SUSPENSION 30 ML CUP PEG SCH (10:13)
[2021-12-06] MEDS: CHLORHEXIDINE GLUCONATE 4% CLEANSER FOR DECOLONIZATION TP SCH (21:34)
[2021-12-07] MEDS ORDERED: MEROPENEM 1 GM VIAL (RESTRICTED TO ID) IVPB ONE ×3 (01:06→17:09)
[2021-12-07] MEDS: MEROPENEM 1 GM in DEXTROSE 5%-WATER 100 ML IVPB SCH ×3 (02:09→17:14)
[2021-12-07] MEDS: NOREPINEPHRINE D5W PREMIX 16,000 MCG/500 ML BAG IVPB SCH ×2 (06:10→16:24)
[2021-12-07] MEDS: levOCARNitine 500 MG/5 ML SOLUTION GT SCH ×3 (06:11→21:24)
[2021-12-07] MEDS: DEXMEDETOMIDINE IN 0.9 % NACL 400 MCG/100 ML VIAL IVPB SCH ×2 (06:11→16:24)
[2021-12-07] MEDS: LEVOTHYROXINE NA 75 MCG TABLET (FP) PEG SCH (06:12)
[2021-12-07] MEDS: VANCOMYCIN 1 GRAM (PRE-DOCKED) 1,000 MG/250 ML BAG IVPB SCH (06:12)
[2021-12-07] MEDS ORDERED: DEXTROSE 5%-WATER 100 ML IVPB ONE ×2 (08:47→17:09)
[2021-12-07] MEDS: MAGNESIUM HYDROX 2400MG/30ML ORAL SUSPENSION 30 ML CUP PEG SCH (09:02)
[2021-12-07] MEDS: Lacosamide 50 MG/5 ML ORAL SOLUTION UNIT CUPS GT SCH ×2 (09:02→21:21)
[2021-12-07] MEDS: ZINC SULFATE 220 MG CAPSULE (FP) GT SCH (09:03)
[2021-12-07] MEDS: ENOXAPARIN NA (PORCINE) 40 MG/0.4 ML DISP.SYRIN SQ SCH (09:03)
[2021-12-07] MEDS: THIAMINE HCL 100 MG TABLET (FP) NGT SCH (09:03)
[2021-12-07] MEDS: SODIUM CHLORIDE 1,000 ML IV SCH (09:04)
[2021-12-07] MEDS: FAMOTIDINE 40 MG/5 ML ORAL SUSPENSION PEG SCH (09:04)
[2021-12-07] MEDS: MUPIROCIN 2% TOPICAL OINTMENT FOR DECOLONIZATION NS SCH ×2 (09:04→21:19)
[2021-12-07] MEDS: MIDAZOLAM IN 0.9 % SOD.CHLORID 100 MG/100 ML PLAST..BAG IVPB SCH (09:05)
[2021-12-07] MEDS: PERAMPANEL 2 MG GT SCH (10:53)
[2021-12-07] MEDS: IPRATROPIUM BR 0.02% 0.5 MG/2.5 ML VIAL.NEB. NEB SCH ×3 (14:20→20:55)
[2021-12-07] MEDS ORDERED: PERAMPANEL 2 MG GT SCH (20:00)
[2021-12-07] MEDS: CHLORHEXIDINE GLUCONATE 4% CLEANSER FOR DECOLONIZATION TP SCH (21:20)
[2021-12-08] MEDS ORDERED: MEROPENEM 1 GM VIAL (RESTRICTED TO ID) IVPB ONE ×3 (01:14→18:24)
[2021-12-08] MEDS ORDERED: DEXTROSE 5%-WATER 100 ML IVPB ONE ×3 (01:14→18:24)
[2021-12-08] MEDS: MEROPENEM 1 GM in DEXTROSE 5%-WATER 100 ML IVPB SCH ×3 (01:22→18:00)
[2021-12-08] MEDS ORDERED: VANCOMYCIN 1,000 MG in DEXTROSE 5%-WATER - 1,000 MG/250 ML IVPB IVPB SCH (05:53)
[2021-12-08] MEDS: levOCARNitine 500 MG/5 ML SOLUTION GT SCH ×3 (06:04→23:36)
[2021-12-08] MEDS: LEVOTHYROXINE NA 75 MCG TABLET (FP) PEG SCH (06:04)
[2021-12-08] MEDS ORDERED: AMINO ACIDS/PROTEIN HYDROLYS 30 ML LIQUID.PKT PEG SCH (08:00)
[2021-12-08 08:10] LABS: HEMATOCRIT 31.4 % (32.4-45.2); HEMOGLOBIN 11.1 GM/dL (10.7-15.3); MCH 30.1 pg (25.7-33.7); MCHC 35.3 g/dl (32.0-36.0); MEAN CELL VOLUME 85.3 fl (80-96); MEAN PLT VOLUME 7.7 fl (7.5-11.1); PLATELET COUNT 196 10^3/uL (134-434); RBC 3.68 M/mm3 (3.60-5.2); RDW 12.5 % (11.6-15.6); WHITE BLOOD COUNT 6.1 K/mm3 (4.0-10.0)
[2021-12-08] MEDS: IPRATROPIUM BR 0.02% 0.5 MG/2.5 ML VIAL.NEB. NEB SCH ×4 (08:19→20:35)
[2021-12-08 08:25] LABS: CHLORIDE 109 mmol/L (98-107); SODIUM 142 mmol/L (136-145)
[2021-12-08 08:28] LABS: ALBUMIN 2.4 g/dl (3.4-5.0); BLOOD UREA NITROGEN 4.6 mg/dL (7-18); CALCIUM 7.9 mg/dL (8.5-10.1); CO2 25 mmol/L (21-32); GLUCOSE,RANDOM 90 mg/dL (74-106)
[2021-12-08 08:32] LABS: BILIRUBIN,TOTAL 0.3 mg/dL (0.2-1); CREATININE 0.2 mg/dL (0.55-1.3); SGOT/AST 23 U/L (15-37); SGPT/ALT 26 U/L (13-61)
[2021-12-08 08:33] LABS: TOT PROT 5.7 g/dl (6.4-8.2)
[2021-12-08 08:34] LABS: ALK PHOS 51 U/L (45-117)
[2021-12-08 08:45] LABS: ANION GAP 8 MMOL/L (8-16)
[2021-12-08] MEDS: MUPIROCIN 2% TOPICAL OINTMENT FOR DECOLONIZATION NS SCH (09:14)
[2021-12-08] MEDS: ENOXAPARIN NA (PORCINE) 40 MG/0.4 ML DISP.SYRIN SQ SCH (09:15)
[2021-12-08] MEDS: ZINC SULFATE 220 MG CAPSULE (FP) GT SCH (09:19)
[2021-12-08] MEDS: MAGNESIUM HYDROX 2400MG/30ML ORAL SUSPENSION 30 ML CUP PEG SCH (09:19)
[2021-12-08] MEDS: Lacosamide 50 MG/5 ML ORAL SOLUTION UNIT CUPS GT SCH ×2 (09:20→23:37)
[2021-12-08] MEDS: THIAMINE HCL 100 MG TABLET (FP) NGT SCH (09:20)
[2021-12-08] MEDS: FAMOTIDINE 40 MG/5 ML ORAL SUSPENSION PEG SCH (09:20)
[2021-12-08] MEDS: POTASSIUM CHLORIDE 20 MEQ PREMIX IVPB 100 ML IVPB SCH ×3 (10:06→12:45)
[2021-12-08] MEDS: SODIUM CHLORIDE 1,000 ML with POTASSIUM CHLORIDE 20 MEQ IV SCH (11:15)
[2021-12-08 16:12] LABS: BLOOD UREA NITROGEN 3.7 mg/dL (7-18); CALCIUM 7.6 mg/dL (8.5-10.1)
[2021-12-08 16:16] LABS: CREATININE 0.2 mg/dL (0.55-1.3)
[2021-12-08] MEDS ORDERED: COLISTIMETHATE IVPB ONE (18:00)
[2021-12-08] MEDS: GENTAMICIN INJECTION 200 MG in DEXTROSE 5%-WATER - 250 ML IVPB SCH (18:31)
[2021-12-08] MEDS ORDERED: diazePAM CARPU-JECT 10 MG/2 ML DISP.SYRIN IVPUSH PRN (19:28)
[2021-12-08] MEDS: NOREPINEPHRINE D5W PREMIX 16,000 MCG/500 ML BAG IVPB SCH (19:30)
[2021-12-08] MEDS: SODIUM CHLORIDE 1,000 ML IV SCH (19:30)
[2021-12-08] MEDS: MIDAZOLAM IN 0.9 % SOD.CHLORID 100 MG/100 ML PLAST..BAG IVPB SCH (19:30)
[2021-12-08] MEDS: PERAMPANEL GT SCH (23:36)
[2021-12-09] MEDS: SCOPOLAMINE HYDROBROMIDE 1 PATCH PATCH.TD72 TD SCH (00:31)
[2021-12-09] MEDS ORDERED: MEROPENEM 1 GM VIAL (RESTRICTED TO ID) IVPB ONE ×3 (01:50→17:24)
[2021-12-09] MEDS ORDERED: DEXTROSE 5%-WATER 100 ML IVPB ONE ×3 (01:50→17:24)
[2021-12-09] MEDS: MEROPENEM 1 GM in DEXTROSE 5%-WATER 100 ML IVPB SCH ×3 (01:59→17:55)
[2021-12-09] MEDS ORDERED: ACETAMINOPHEN 650 MG/20.3 ML ORAL SOLUTION (CUPS) PO ONE (05:34)
[2021-12-09] MEDS: levOCARNitine 500 MG/5 ML SOLUTION GT SCH ×3 (05:44→21:02)
[2021-12-09] MEDS ORDERED: COLISTIMETHATE IVPB SCH (06:00)
[2021-12-09] MEDS: LEVOTHYROXINE NA 75 MCG TABLET (FP) PEG SCH (06:04)
[2021-12-09] MEDS: IPRATROPIUM BR 0.02% 0.5 MG/2.5 ML VIAL.NEB. NEB SCH ×4 (07:50→20:01)
[2021-12-09 08:21] LABS: HEMATOCRIT 32.5 % (32.4-45.2); HEMOGLOBIN 11.5 GM/dL (10.7-15.3); MCHC 35.3 g/dl (32.0-36.0); MEAN CELL VOLUME 84.9 fl (80-96); MEAN PLT VOLUME 7.5 fl (7.5-11.1); PLATELET COUNT 253 10^3/uL (134-434); RBC 3.83 M/mm3 (3.60-5.2); RDW 12.5 % (11.6-15.6)
[2021-12-09 08:44] LABS: CALCIUM 7.8 mg/dL (8.5-10.1)
[2021-12-09 08:45] LABS: BLOOD UREA NITROGEN 4.6 mg/dL (7-18); MAGNESIUM 2.1 mg/dL (1.8-2.4)
[2021-12-09 08:49] LABS: CREATININE 0.3 mg/dL (0.55-1.3)
[2021-12-09] MEDS: AMINO ACIDS/PROTEIN HYDROLYS 30 ML LIQUID.PKT PEG SCH (10:00)
[2021-12-09] MEDS: ENOXAPARIN NA (PORCINE) 40 MG/0.4 ML DISP.SYRIN SQ SCH (10:01)
[2021-12-09] MEDS: Lacosamide 50 MG/5 ML ORAL SOLUTION UNIT CUPS GT SCH ×2 (10:03→21:03)
[2021-12-09] MEDS: FAMOTIDINE 40 MG/5 ML ORAL SUSPENSION PEG SCH (10:04)
[2021-12-09] MEDS: ZINC SULFATE 220 MG CAPSULE (FP) GT SCH (10:05)
[2021-12-09] MEDS: GENTAMICIN INJECTION 200 MG in DEXTROSE 5%-WATER - 250 ML IVPB SCH (11:34)
[2021-12-09] MEDS: MAGNESIUM HYDROX 2400MG/30ML ORAL SUSPENSION 30 ML CUP PEG SCH (11:41)
[2021-12-09] MEDS: THIAMINE HCL 100 MG TABLET (FP) NGT SCH (11:41)
[2021-12-09] MEDS ORDERED: POTASSIUM CHLORIDE ORAL LIQUID 20 MEQ/15 ML PO ONE (13:37)
[2021-12-09] MEDS: ZINC OXIDE 20% TOPICAL OINTMENT 30 GM TUBE TP SCH ×2 (15:34→21:03)
[2021-12-09] MEDS ORDERED: TIGECYCLINE 100 MG in DEXTROSE 5%-WATER - 100 ML IVPB ONE (16:00)
[2021-12-09] MEDS: PERAMPANEL GT SCH (21:01)
[2021-12-10] MEDS ORDERED: DEXTROSE 5%-WATER 100 ML IVPB ONE ×3 (01:36→17:28)
[2021-12-10] MEDS ORDERED: MEROPENEM 1 GM VIAL (RESTRICTED TO ID) IVPB ONE ×3 (01:36→17:27)
[2021-12-10] MEDS: MEROPENEM 1 GM in DEXTROSE 5%-WATER 100 ML IVPB SCH ×3 (01:42→17:26)
[2021-12-10] MEDS: SODIUM CHLORIDE 1,000 ML with POTASSIUM CHLORIDE 20 MEQ IV SCH ×2 (06:11→15:58)
[2021-12-10] MEDS: levOCARNitine 500 MG/5 ML SOLUTION GT SCH ×3 (06:12→21:19)
[2021-12-10] MEDS: LEVOTHYROXINE NA 75 MCG TABLET (FP) PEG SCH (06:12)
[2021-12-10 08:49] LABS: HEMATOCRIT 37.3 % (32.4-45.2); HEMOGLOBIN 12.4 GM/dL (10.7-15.3); MCH 28.9 pg (25.7-33.7); MCHC 33.3 g/dl (32.0-36.0); MEAN PLT VOLUME 8.1 fl (7.5-11.1); PLATELET COUNT 325 10^3/uL (134-434); RBC 4.29 M/mm3 (3.60-5.2); RDW 12.3 % (11.6-15.6); WHITE BLOOD COUNT 7.2 K/mm3 (4.0-10.0)
[2021-12-10] MEDS: IPRATROPIUM BR 0.02% 0.5 MG/2.5 ML VIAL.NEB. NEB SCH ×4 (08:53→20:24)
[2021-12-10] MEDS: TIGECYCLINE 50 MG in DEXTROSE 5%-WATER - 100 ML IVPB SCH ×2 (08:57→19:51)
[2021-12-10 09:13] LABS: CALCIUM 8.6 mg/dL (8.5-10.1)
[2021-12-10 09:14] LABS: BLOOD UREA NITROGEN 14.1 mg/dL (7-18); MAGNESIUM 2.4 mg/dL (1.8-2.4)
[2021-12-10 09:17] LABS: CREATININE 0.3 mg/dL (0.55-1.3)
[2021-12-10] MEDS: AMINO ACIDS/PROTEIN HYDROLYS 30 ML LIQUID.PKT PEG SCH (10:22)
[2021-12-10] MEDS: ENOXAPARIN NA (PORCINE) 40 MG/0.4 ML DISP.SYRIN SQ SCH (10:22)
[2021-12-10] MEDS: ZINC SULFATE 220 MG CAPSULE (FP) GT SCH (10:23)
[2021-12-10] MEDS: FAMOTIDINE 40 MG/5 ML ORAL SUSPENSION PEG SCH (10:23)
[2021-12-10] MEDS: MAGNESIUM HYDROX 2400MG/30ML ORAL SUSPENSION 30 ML CUP PEG SCH (10:23)
[2021-12-10] MEDS: ZINC OXIDE 20% TOPICAL OINTMENT 30 GM TUBE TP SCH ×2 (10:23→21:20)
[2021-12-10] MEDS: THIAMINE HCL 100 MG TABLET (FP) NGT SCH (10:23)
[2021-12-10] MEDS: Lacosamide 50 MG/5 ML ORAL SOLUTION UNIT CUPS GT SCH ×2 (10:23→21:19)
[2021-12-10 16:39] VITALS: BMI 24.5
[2021-12-10] MEDS: PERAMPANEL GT SCH (20:08)
[2021-12-11] MEDS ORDERED: DEXTROSE 5%-WATER 100 ML IVPB ONE ×3 (01:29→17:38)
[2021-12-11] MEDS ORDERED: MEROPENEM 1 GM VIAL (RESTRICTED TO ID) IVPB ONE ×3 (01:29→17:37)
[2021-12-11] MEDS: MEROPENEM 1 GM in DEXTROSE 5%-WATER 100 ML IVPB SCH ×3 (01:36→17:42)
[2021-12-11] MEDS: LEVOTHYROXINE NA 75 MCG TABLET (FP) PEG SCH (06:17)
[2021-12-11] MEDS: levOCARNitine 500 MG/5 ML SOLUTION GT SCH ×3 (06:19→22:11)
[2021-12-11] MEDS: IPRATROPIUM BR 0.02% 0.5 MG/2.5 ML VIAL.NEB. NEB SCH ×4 (07:48→20:05)
[2021-12-11 09:31] LABS: HEMATOCRIT 35.3 % (32.4-45.2); HEMOGLOBIN 12.5 GM/dL (10.7-15.3); MCH 30.2 pg (25.7-33.7); MCHC 35.4 g/dl (32.0-36.0); MEAN CELL VOLUME 85.3 fl (80-96); MEAN PLT VOLUME 7.3 fl (7.5-11.1); PLATELET COUNT 298 10^3/uL (134-434); RBC 4.14 M/mm3 (3.60-5.2); RDW 12.6 % (11.6-15.6); WHITE BLOOD COUNT 4.4 K/mm3 (4.0-10.0)
[2021-12-11] MEDS: AMINO ACIDS/PROTEIN HYDROLYS 30 ML LIQUID.PKT PEG SCH (09:35)
[2021-12-11] MEDS: ENOXAPARIN NA (PORCINE) 40 MG/0.4 ML DISP.SYRIN SQ SCH (09:35)
[2021-12-11] MEDS: TIGECYCLINE 50 MG in DEXTROSE 5%-WATER - 100 ML IVPB SCH ×2 (09:35→20:35)
[2021-12-11] MEDS: MAGNESIUM HYDROX 2400MG/30ML ORAL SUSPENSION 30 ML CUP PEG SCH (09:35)
[2021-12-11] MEDS: ZINC SULFATE 220 MG CAPSULE (FP) GT SCH (09:36)
[2021-12-11] MEDS: FAMOTIDINE 40 MG/5 ML ORAL SUSPENSION PEG SCH (09:36)
[2021-12-11] MEDS: Lacosamide 50 MG/5 ML ORAL SOLUTION UNIT CUPS GT SCH ×2 (09:38→22:10)
[2021-12-11] MEDS: THIAMINE HCL 100 MG TABLET (FP) NGT SCH (09:38)
[2021-12-11] MEDS: ZINC OXIDE 20% TOPICAL OINTMENT 30 GM TUBE TP SCH ×2 (09:39→22:10)
[2021-12-11 10:24] LABS: CALCIUM 8.5 mg/dL (8.5-10.1); MAGNESIUM 2.2 mg/dL (1.8-2.4)
[2021-12-11 10:25] LABS: BLOOD UREA NITROGEN 13.4 mg/dL (7-18)
[2021-12-11 10:27] LABS: CREATININE 0.3 mg/dL (0.55-1.3); PHOSPHOROUS 2.9 mg/dL (2.5-4.9)
[2021-12-11] MEDS: SODIUM CHLORIDE 1,000 ML with POTASSIUM CHLORIDE 20 MEQ IV SCH (15:23)
[2021-12-11] MEDS: PERAMPANEL GT SCH (20:35)
[2021-12-11] MEDS: SCOPOLAMINE HYDROBROMIDE 1 PATCH PATCH.TD72 TD SCH (23:31)
[2021-12-12] MEDS ORDERED: DEXTROSE 5%-WATER 100 ML IVPB ONE ×2 (01:52→09:39)
[2021-12-12] MEDS ORDERED: MEROPENEM 1 GM VIAL (RESTRICTED TO ID) IVPB ONE ×2 (01:52→09:39)
[2021-12-12] MEDS: MEROPENEM 1 GM in DEXTROSE 5%-WATER 100 ML IVPB SCH ×2 (01:54→10:50)
[2021-12-12] MEDS: LEVOTHYROXINE NA 75 MCG TABLET (FP) PEG SCH (06:15)
[2021-12-12] MEDS: levOCARNitine 500 MG/5 ML SOLUTION GT SCH ×3 (06:15→21:44)
[2021-12-12] MEDS: TIGECYCLINE 50 MG in DEXTROSE 5%-WATER - 100 ML IVPB SCH ×2 (08:26→19:54)
[2021-12-12] MEDS: IPRATROPIUM BR 0.02% 0.5 MG/2.5 ML VIAL.NEB. NEB SCH ×3 (08:37→20:52)
[2021-12-12 09:31] LABS: HEMATOCRIT 35.3 % (32.4-45.2); HEMOGLOBIN 12.3 GM/dL (10.7-15.3); MCH 30.2 pg (25.7-33.7); MCHC 34.8 g/dl (32.0-36.0); MEAN PLT VOLUME 7.7 fl (7.5-11.1); PLATELET COUNT 319 10^3/uL (134-434); RBC 4.05 M/mm3 (3.60-5.2); RDW 12.5 % (11.6-15.6); WHITE BLOOD COUNT 5.9 K/mm3 (4.0-10.0)
[2021-12-12 09:46] LABS: BLOOD UREA NITROGEN 14.5 mg/dL (7-18); CALCIUM 8.4 mg/dL (8.5-10.1); CREATININE 0.3 mg/dL (0.55-1.3); MAGNESIUM 2.1 mg/dL (1.8-2.4); PHOSPHOROUS 3.5 mg/dL (2.5-4.9)
[2021-12-12] MEDS: ENOXAPARIN NA (PORCINE) 40 MG/0.4 ML DISP.SYRIN SQ SCH (10:48)
[2021-12-12] MEDS: AMINO ACIDS/PROTEIN HYDROLYS 30 ML LIQUID.PKT PEG SCH (10:48)
[2021-12-12] MEDS: THIAMINE HCL 100 MG TABLET (FP) NGT SCH (10:49)
[2021-12-12] MEDS: Lacosamide 50 MG/5 ML ORAL SOLUTION UNIT CUPS GT SCH ×2 (10:49→21:44)
[2021-12-12] MEDS: ZINC SULFATE 220 MG CAPSULE (FP) GT SCH (10:49)
[2021-12-12] MEDS: metoPROLOL SUCCINATE 25 MG TAB.SR.24H (FP) PO SCH (10:49)
[2021-12-12] MEDS: MAGNESIUM HYDROX 2400MG/30ML ORAL SUSPENSION 30 ML CUP PEG SCH (10:49)
[2021-12-12] MEDS: ZINC OXIDE 20% TOPICAL OINTMENT 30 GM TUBE TP SCH ×2 (11:10→21:44)
[2021-12-12] MEDS: FAMOTIDINE 40 MG/5 ML ORAL SUSPENSION PEG SCH (11:11)
[2021-12-12] MEDS: SODIUM CHLORIDE 1,000 ML with POTASSIUM CHLORIDE 20 MEQ IV SCH (11:15)
[2021-12-12] MEDS: PERAMPANEL GT SCH (19:54)
[2021-12-13] MEDS ORDERED: ACETAMINOPHEN 500 MG TABLET (FP) PO ONE (05:50)
[2021-12-13] MEDS ORDERED: ACETAMINOPHEN 650 MG/20.3 ML ORAL SOLUTION (CUPS) PO ONE (06:14)
[2021-12-13] MEDS: LEVOTHYROXINE NA 75 MCG TABLET (FP) PEG SCH (06:23)
[2021-12-13] MEDS: levOCARNitine 500 MG/5 ML SOLUTION GT SCH ×3 (06:24→21:25)
[2021-12-13] MEDS: TIGECYCLINE 50 MG in DEXTROSE 5%-WATER - 100 ML IVPB SCH ×2 (07:45→21:23)
[2021-12-13] MEDS: AMINO ACIDS/PROTEIN HYDROLYS 30 ML LIQUID.PKT PEG SCH (07:45)
[2021-12-13] MEDS: IPRATROPIUM BR 0.02% 0.5 MG/2.5 ML VIAL.NEB. NEB SCH ×4 (08:52→19:55)
[2021-12-13] MEDS: MAGNESIUM HYDROX 2400MG/30ML ORAL SUSPENSION 30 ML CUP PEG SCH (10:50)
[2021-12-13] MEDS: metoPROLOL SUCCINATE 25 MG TAB.SR.24H (FP) PO SCH (10:51)
[2021-12-13] MEDS: ZINC SULFATE 220 MG CAPSULE (FP) GT SCH (10:51)
[2021-12-13] MEDS: THIAMINE HCL 100 MG TABLET (FP) NGT SCH (10:51)
[2021-12-13] MEDS: Lacosamide 50 MG/5 ML ORAL SOLUTION UNIT CUPS GT SCH ×2 (10:53→21:28)
[2021-12-13] MEDS: ZINC OXIDE 20% TOPICAL OINTMENT 30 GM TUBE TP SCH ×2 (10:54→21:30)
[2021-12-13] MEDS: ENOXAPARIN NA (PORCINE) 40 MG/0.4 ML DISP.SYRIN SQ SCH (11:31)
[2021-12-13] MEDS: FAMOTIDINE 40 MG/5 ML ORAL SUSPENSION PEG SCH (11:31)
[2021-12-13 15:56] LABS: HEMOGLOBIN 12.7 GM/dL (10.7-15.3); MCHC 34.4 g/dl (32.0-36.0); MEAN CELL VOLUME 87.2 fl (80-96); MEAN PLT VOLUME 7.3 fl (7.5-11.1); PLATELET COUNT 331 10^3/uL (134-434); RBC 4.24 M/mm3 (3.60-5.2); RDW 12.7 % (11.6-15.6); WHITE BLOOD COUNT 3.6 K/mm3 (4.0-10.0)
[2021-12-13 16:18] LABS: CALCIUM 7.9 mg/dL (8.5-10.1)
[2021-12-13 16:19] LABS: BLOOD UREA NITROGEN 19.8 mg/dL (7-18)
[2021-12-13 16:22] LABS: CREATININE 0.3 mg/dL (0.55-1.3)
[2021-12-13] MEDS: VANCOMYCIN 250 MG/5 ML ORAL SOLUTION PEG SCH (17:23)
[2021-12-13] MEDS: SODIUM CHLORIDE 1,000 ML IV SCH (17:43)
[2021-12-13] MEDS: PERAMPANEL GT SCH (21:37)
[2021-12-14] MEDS: VANCOMYCIN 250 MG/5 ML ORAL SOLUTION PEG SCH ×4 (00:25→17:08)
[2021-12-14] MEDS: levOCARNitine 500 MG/5 ML SOLUTION GT SCH ×3 (05:40→21:13)
[2021-12-14] MEDS: LEVOTHYROXINE NA 75 MCG TABLET (FP) PEG SCH (06:42)
[2021-12-14] MEDS: IPRATROPIUM BR 0.02% 0.5 MG/2.5 ML VIAL.NEB. NEB SCH ×4 (07:25→20:15)
[2021-12-14 08:34] LABS: HEMATOCRIT 37.6 % (32.4-45.2); HEMOGLOBIN 12.8 GM/dL (10.7-15.3); MCH 29.5 pg (25.7-33.7); MCHC 34.1 g/dl (32.0-36.0); MEAN CELL VOLUME 86.6 fl (80-96); MEAN PLT VOLUME 7.3 fl (7.5-11.1); PLATELET COUNT 346 10^3/uL (134-434); RBC 4.34 M/mm3 (3.60-5.2); RDW 12.6 % (11.6-15.6)
[2021-12-14] MEDS: AMINO ACIDS/PROTEIN HYDROLYS 30 ML LIQUID.PKT PEG SCH (08:44)
[2021-12-14 08:51] LABS: CALCIUM 8.1 mg/dL (8.5-10.1)
[2021-12-14 08:52] LABS: ALBUMIN 2.5 g/dl (3.4-5.0); BLOOD UREA NITROGEN 13.9 mg/dL (7-18)
[2021-12-14 08:55] LABS: CREATININE 0.2 mg/dL (0.55-1.3)
[2021-12-14 08:57] LABS: BILIRUBIN,TOTAL 0.3 mg/dL (0.2-1)
[2021-12-14] MEDS: TIGECYCLINE 50 MG in DEXTROSE 5%-WATER - 100 ML IVPB SCH ×2 (10:29→20:07)
[2021-12-14] MEDS: MAGNESIUM HYDROX 2400MG/30ML ORAL SUSPENSION 30 ML CUP PEG SCH (10:38)
[2021-12-14] MEDS: ENOXAPARIN NA (PORCINE) 40 MG/0.4 ML DISP.SYRIN SQ SCH (10:38)
[2021-12-14] MEDS: ZINC SULFATE 220 MG CAPSULE (FP) GT SCH (10:38)
[2021-12-14] MEDS: Lacosamide 50 MG/5 ML ORAL SOLUTION UNIT CUPS GT SCH ×2 (10:38→21:14)
[2021-12-14] MEDS: metoPROLOL SUCCINATE 25 MG TAB.SR.24H (FP) PO SCH (10:39)
[2021-12-14] MEDS: THIAMINE HCL 100 MG TABLET (FP) NGT SCH (10:39)
[2021-12-14] MEDS: FAMOTIDINE 40 MG/5 ML ORAL SUSPENSION PEG SCH (10:39)
[2021-12-14] MEDS: ZINC OXIDE 20% TOPICAL OINTMENT 30 GM TUBE TP SCH ×2 (10:42→21:20)
[2021-12-14] MEDS: SODIUM CHLORIDE 1,000 ML IV SCH (17:11)
[2021-12-14] MEDS: PERAMPANEL GT SCH (20:08)
[2021-12-15] MEDS: VANCOMYCIN 250 MG/5 ML ORAL SOLUTION PEG SCH ×5 (01:41→23:01)
[2021-12-15] MEDS: SCOPOLAMINE HYDROBROMIDE 1 PATCH PATCH.TD72 TD SCH (01:41)
[2021-12-15] MEDS: levOCARNitine 500 MG/5 ML SOLUTION GT SCH ×3 (05:45→22:44)
[2021-12-15] MEDS: LEVOTHYROXINE NA 75 MCG TABLET (FP) PEG SCH (06:06)
[2021-12-15] MEDS: IPRATROPIUM BR 0.02% 0.5 MG/2.5 ML VIAL.NEB. NEB SCH ×4 (07:40→20:10)
[2021-12-15 08:52] LABS: CALCIUM 7.9 mg/dL (8.5-10.1)
[2021-12-15 08:53] LABS: ALBUMIN 2.4 g/dl (3.4-5.0); BLOOD UREA NITROGEN 15.6 mg/dL (7-18); MAGNESIUM 2.1 mg/dL (1.8-2.4)
[2021-12-15 08:56] LABS: CREATININE 0.3 mg/dL (0.55-1.3); PHOSPHOROUS 3.8 mg/dL (2.5-4.9)
[2021-12-15 08:57] LABS: BILIRUBIN,TOTAL 0.4 mg/dL (0.2-1); TOT PROT 5.8 g/dl (6.4-8.2)
[2021-12-15] MEDS: TIGECYCLINE 50 MG in DEXTROSE 5%-WATER - 100 ML IVPB SCH ×2 (09:01→19:47)
[2021-12-15] MEDS: AMINO ACIDS/PROTEIN HYDROLYS 30 ML LIQUID.PKT PEG SCH (09:01)
[2021-12-15] MEDS: ENOXAPARIN NA (PORCINE) 40 MG/0.4 ML DISP.SYRIN SQ SCH (09:05)
[2021-12-15] MEDS: ZINC SULFATE 220 MG CAPSULE (FP) GT SCH (09:06)
[2021-12-15] MEDS: MAGNESIUM HYDROX 2400MG/30ML ORAL SUSPENSION 30 ML CUP PEG SCH (09:06)
[2021-12-15] MEDS: FAMOTIDINE 40 MG/5 ML ORAL SUSPENSION PEG SCH (09:07)
[2021-12-15] MEDS: metoPROLOL SUCCINATE 25 MG TAB.SR.24H (FP) PO SCH (09:07)
[2021-12-15] MEDS: Lacosamide 50 MG/5 ML ORAL SOLUTION UNIT CUPS GT SCH ×2 (09:08→22:43)
[2021-12-15] MEDS: ZINC OXIDE 20% TOPICAL OINTMENT 30 GM TUBE TP SCH ×2 (09:08→22:44)
[2021-12-15] MEDS: THIAMINE HCL 100 MG TABLET (FP) NGT SCH (09:08)
[2021-12-15 12:09] LABS: HEMATOCRIT 35.9 % (32.4-45.2); HEMOGLOBIN 12.2 GM/dL (10.7-15.3); MCH 29.8 pg (25.7-33.7); MEAN CELL VOLUME 87.6 fl (80-96); MEAN PLT VOLUME 7.4 fl (7.5-11.1); PLATELET COUNT 308 10^3/uL (134-434); RBC 4.09 M/mm3 (3.60-5.2); WHITE BLOOD COUNT 4.4 K/mm3 (4.0-10.0)
[2021-12-15] MEDS: SODIUM CHLORIDE 1,000 ML IV SCH (17:46)
[2021-12-15] MEDS: PERAMPANEL GT SCH (19:47)
[2021-12-16] MEDS: VANCOMYCIN 250 MG/5 ML ORAL SOLUTION PEG SCH ×3 (06:37→17:40)
[2021-12-16] MEDS: levOCARNitine 500 MG/5 ML SOLUTION GT SCH ×3 (06:37→21:08)
[2021-12-16] MEDS: LEVOTHYROXINE NA 75 MCG TABLET (FP) PEG SCH (06:37)
[2021-12-16 07:21] LABS: ALBUMIN 2.8 g/dl (3.4-5.0); CALCIUM 8.9 mg/dL (8.5-10.1)
[2021-12-16 07:22] LABS: BLOOD UREA NITROGEN 19.5 mg/dL (7-18)
[2021-12-16 07:24] LABS: CREATININE 0.3 mg/dL (0.55-1.3)
[2021-12-16 07:26] LABS: BILIRUBIN,TOTAL 0.4 mg/dL (0.2-1); TOT PROT 7.2 g/dl (6.4-8.2)
[2021-12-16] MEDS: AMINO ACIDS/PROTEIN HYDROLYS 30 ML LIQUID.PKT PEG SCH (07:50)
[2021-12-16] MEDS: IPRATROPIUM BR 0.02% 0.5 MG/2.5 ML VIAL.NEB. NEB SCH ×4 (08:15→19:56)
[2021-12-16] MEDS: MAGNESIUM HYDROX 2400MG/30ML ORAL SUSPENSION 30 ML CUP PEG SCH (09:29)
[2021-12-16] MEDS: TIGECYCLINE 50 MG in DEXTROSE 5%-WATER - 100 ML IVPB SCH (09:29)
[2021-12-16] MEDS: ZINC SULFATE 220 MG CAPSULE (FP) GT SCH (09:30)
[2021-12-16] MEDS: metoPROLOL SUCCINATE 25 MG TAB.SR.24H (FP) PO SCH (09:30)
[2021-12-16] MEDS: FAMOTIDINE 40 MG/5 ML ORAL SUSPENSION PEG SCH (09:30)
[2021-12-16] MEDS: Lacosamide 50 MG/5 ML ORAL SOLUTION UNIT CUPS GT SCH ×2 (09:31→21:09)
[2021-12-16] MEDS: ZINC OXIDE 20% TOPICAL OINTMENT 30 GM TUBE TP SCH ×2 (09:31→21:10)
[2021-12-16] MEDS: THIAMINE HCL 100 MG TABLET (FP) NGT SCH (09:31)
[2021-12-16 10:50] LABS: BASO % 0.4 % (0-2.0); EOS % 0.1 % (0-4.5); HEMATOCRIT 43.4 % (32.4-45.2); HEMOGLOBIN 14.2 GM/dL (10.7-15.3); LYMPH % 6.1 % (8-40); MCH 28.9 pg (25.7-33.7); MCHC 32.8 g/dl (32.0-36.0); MEAN PLT VOLUME 8.2 fl (7.5-11.1); MONO % 2.9 % (3.8-10.2); NEUT % 90.5 % (42.8-82.8); PLATELET COUNT 291 10^3/uL (134-434); RBC 4.94 M/mm3 (3.60-5.2); WHITE BLOOD COUNT 10.7 K/mm3 (4.0-10.0)
[2021-12-16] MEDS ORDERED: LACTOBACILLUS ACIDOPHILUS 1 TABLET PEG SCH (16:00)
[2021-12-16] MEDS ORDERED: LACTOBACILLUS ACIDOPHILUS 1 TABLET PO SCH (16:00)
[2021-12-16] MEDS: CLOTRIMAZOLE 1% CREAM TP SCH ×2 (16:17→21:08)
[2021-12-16] MEDS: SODIUM CHLORIDE 1,000 ML IV SCH (17:40)
[2021-12-16] MEDS: PERAMPANEL GT SCH (20:18)
[2021-12-17] MEDS: VANCOMYCIN 250 MG/5 ML ORAL SOLUTION PEG SCH ×4 (00:10→17:08)
[2021-12-17] MEDS: levOCARNitine 500 MG/5 ML SOLUTION GT SCH ×3 (05:53→21:37)
[2021-12-17] MEDS: LEVOTHYROXINE NA 75 MCG TABLET (FP) PEG SCH (06:06)
[2021-12-17] MEDS ORDERED: ACETAMINOPHEN 650 MG/20.3 ML ORAL SOLUTION (CUPS) PO PRN (07:54)
[2021-12-17] MEDS: IPRATROPIUM BR 0.02% 0.5 MG/2.5 ML VIAL.NEB. NEB SCH ×4 (08:03→20:10)
[2021-12-17] MEDS: ZINC SULFATE 220 MG CAPSULE (FP) GT SCH (10:07)
[2021-12-17] MEDS: LACTOBACILLUS ACIDOPHILUS 1 TABLET PEG SCH ×2 (10:07→21:37)
[2021-12-17] MEDS: AMINO ACIDS/PROTEIN HYDROLYS 30 ML LIQUID.PKT PEG SCH (10:07)
[2021-12-17] MEDS: Lacosamide 50 MG/5 ML ORAL SOLUTION UNIT CUPS GT SCH ×2 (10:07→21:37)
[2021-12-17] MEDS: THIAMINE HCL 100 MG TABLET (FP) NGT SCH (10:07)
[2021-12-17] MEDS: metoPROLOL SUCCINATE 25 MG TAB.SR.24H (FP) PO SCH (10:08)
[2021-12-17] MEDS: FAMOTIDINE 40 MG/5 ML ORAL SUSPENSION PEG SCH (10:08)
[2021-12-17] MEDS: CLOTRIMAZOLE 1% CREAM TP SCH ×2 (10:09→21:38)
[2021-12-17] MEDS: ZINC OXIDE 20% TOPICAL OINTMENT 30 GM TUBE TP SCH ×2 (10:10→21:38)
[2021-12-17 11:47] LABS: HEMATOCRIT 34.7 % (32.4-45.2); HEMOGLOBIN 11.8 GM/dL (10.7-15.3); MCH 29.9 pg (25.7-33.7); MCHC 34.1 g/dl (32.0-36.0); MEAN CELL VOLUME 87.7 fl (80-96); MEAN PLT VOLUME 7.9 fl (7.5-11.1); PLATELET COUNT 249 10^3/uL (134-434); RBC 3.95 M/mm3 (3.60-5.2); WHITE BLOOD COUNT 4.8 K/mm3 (4.0-10.0)
[2021-12-17 12:02] LABS: CALCIUM 7.9 mg/dL (8.5-10.1)
[2021-12-17 12:03] LABS: BLOOD UREA NITROGEN 15.6 mg/dL (7-18)
[2021-12-17 12:06] LABS: CREATININE 0.3 mg/dL (0.55-1.3); PHOSPHOROUS 3.5 mg/dL (2.5-4.9)
[2021-12-17 12:07] LABS: BILIRUBIN,TOTAL 0.5 mg/dL (0.2-1); TOT PROT 5.4 g/dl (6.4-8.2)
[2021-12-17 12:09] LABS: ALBUMIN 2.1 g/dl (3.4-5.0)
[2021-12-17] MEDS: SODIUM CHLORIDE 1,000 ML IV SCH (17:09)
[2021-12-17] MEDS: PERAMPANEL GT SCH (20:41)
[2021-12-18] MEDS: VANCOMYCIN 250 MG/5 ML ORAL SOLUTION PEG SCH ×3 (01:10→13:55)
[2021-12-18] MEDS: SCOPOLAMINE HYDROBROMIDE 1 PATCH PATCH.TD72 TD SCH (01:10)
[2021-12-18] MEDS: levOCARNitine 500 MG/5 ML SOLUTION GT SCH ×2 (06:11→13:55)
[2021-12-18] MEDS: LEVOTHYROXINE NA 75 MCG TABLET (FP) PEG SCH (06:12)
[2021-12-18] MEDS: IPRATROPIUM BR 0.02% 0.5 MG/2.5 ML VIAL.NEB. NEB SCH (07:57)
[2021-12-18 09:38] LABS: HEMATOCRIT 33.3 % (32.4-45.2); HEMOGLOBIN 11.6 GM/dL (10.7-15.3); MCH 30.1 pg (25.7-33.7); MCHC 34.7 g/dl (32.0-36.0); MEAN CELL VOLUME 86.7 fl (80-96); MEAN PLT VOLUME 8.1 fl (7.5-11.1); PLATELET COUNT 248 10^3/uL (134-434); RBC 3.84 M/mm3 (3.60-5.2); RDW 13.2 % (11.6-15.6)
[2021-12-18] MEDS: AMINO ACIDS/PROTEIN HYDROLYS 30 ML LIQUID.PKT PEG SCH (09:51)
[2021-12-18] MEDS: FAMOTIDINE 40 MG/5 ML ORAL SUSPENSION PEG SCH (09:51)
[2021-12-18] MEDS: Lacosamide 50 MG/5 ML ORAL SOLUTION UNIT CUPS GT SCH (09:51)
[2021-12-18] MEDS: THIAMINE HCL 100 MG TABLET (FP) NGT SCH (09:51)
[2021-12-18] MEDS: CLOTRIMAZOLE 1% CREAM TP SCH (09:52)
[2021-12-18] MEDS: ZINC OXIDE 20% TOPICAL OINTMENT 30 GM TUBE TP SCH (09:52)
[2021-12-18] MEDS: metoPROLOL SUCCINATE 25 MG TAB.SR.24H (FP) PO SCH (09:52)
[2021-12-18] MEDS: ZINC SULFATE 220 MG CAPSULE (FP) GT SCH (09:52)
[2021-12-18 10:03] LABS: CALCIUM 8.5 mg/dL (8.5-10.1)
[2021-12-18] MEDS ORDERED: metoPROLOL SUCCINATE 25 MG TAB.SR.24H (FP) PO SCH (10:03)
[2021-12-18 10:04] LABS: ALBUMIN 2.3 g/dl (3.4-5.0); BLOOD UREA NITROGEN 7.8 mg/dL (7-18); MAGNESIUM 1.7 mg/dL (1.8-2.4)
[2021-12-18 10:07] LABS: CREATININE 0.3 mg/dL (0.55-1.3); PHOSPHOROUS 3.1 mg/dL (2.5-4.9)
[2021-12-18 10:08] LABS: TOT PROT 5.8 g/dl (6.4-8.2)
[2021-12-18 10:09] LABS: BILIRUBIN,TOTAL 0.5 mg/dL (0.2-1)
[2021-12-18] MEDS ORDERED: METOPROLOL TARTRATE 25 MG TABLET (FP) PO SCH (11:11)
[2021-12-18] MEDS ORDERED: MAGNESIUM OXIDE 400 MG TABLET (FP) PO ONE (12:45)
[2021-12-18 14:50] VITALS: BP 104/72; PULSE 112; TEMP 99.1
== END 2021-12-18 16:07 | disposition home or self-care (01) | DRG 871 ==
LOC: JER 04:54 → JERBED 08:53 → JICU 15:16 → J4S 12-08 12:10
PROVIDERS: ADMIT Internal Medicine Pulmonary Disease; ATTEND Internal Medicine
PROC: 3E0G76Z Introduction of Nutritional Substance into Upper GI, Via Natural or Artificial Opening (ICD-10-PCS; principal; 2021-12-05)
PROC: 5A1945Z Respiratory Ventilation, 24-96 Consecutive Hours (ICD-10-PCS; 2021-12-05)
PROC: 0BH17EZ Insertion of Endotracheal Airway into Trachea, Via Natural or Artificial Opening (ICD-10-PCS; 2021-12-05)
DX: A41.9 Sepsis, unspecified organism (principal); R53.2 Functional quadriplegia; R65.21 Severe sepsis with septic shock; J96.01 Acute respiratory failure with hypoxia; J69.0 Pneumonitis due to inhalation of food and vomit; I50.23 Acute on chronic systolic (congestive) heart failure; F73 Profound intellectual disabilities; I24.8 Other forms of acute ischemic heart disease; G31.82 Leigh's disease; E87.1 Hypo-osmolality and hyponatremia; A04.72 Enterocolitis due to Clostridium difficile, not specified as recurrent; N39.0 Urinary tract infection, site not specified; E11.9 Type 2 diabetes mellitus without complications; G40.909 Epilepsy, unspecified, not intractable, without status epilepticus; E06.3 Autoimmune thyroiditis; M41.9 Scoliosis, unspecified; L30.9 Dermatitis, unspecified; K31.89 Other diseases of stomach and duodenum; B96.4 Proteus (mirabilis) (morganii) as the cause of diseases classified elsewhere; E87.6 Hypokalemia; E83.42 Hypomagnesemia
CPT/HCPCS: 36415; 36600; 71045-TC-FY; 71275-TC; 80048; 80053; 81003; 82550; 82553; 82570; 82803; 82962; 83605; 83735; 83880; 84100; 84484; 85025; 85027; 85610; 85730; 87040; 87070; 87086; 87186; 87205; 87324; 87449; 93005; 93010; 93306-TC; 94002; 94640; 99285-25; C9803; G0480; J3243; Q9967; U0003; U0005

== ENCOUNTER 2022-05-28 16:16 | Inpatient (IN) | payer OTHER ==
[2022-05-28] MEDS ORDERED: TIGECYCLINE 100 MG in DEXTROSE 5%-WATER - 100 ML IVPB ONE (18:15)
[2022-05-28 18:48] LABS: BASO % 0.3 % (0-2.0); EOS % 2.3 % (0-4.5); HEMATOCRIT 40.7 % (32.4-45.2); HEMOGLOBIN 14.3 GM/dL (10.7-15.3); LYMPH % 39.1 % (8-40); MCH 30.8 pg (25.7-33.7); MCHC 35.2 g/dl (32.0-36.0); MEAN CELL VOLUME 87.4 fl (80-96); MEAN PLT VOLUME 7.2 fl (7.5-11.1); MONO % 13.8 % (3.8-10.2); NEUT % 44.5 % (42.8-82.8); PLATELET COUNT 285 10^3/uL (134-434); RBC 4.66 M/mm3 (3.60-5.2); RDW 13.5 % (11.6-15.6); WHITE BLOOD COUNT 4.3 K/mm3 (4.0-10.0)
[2022-05-28 19:02] LABS: EPI CELLS 2 /uL (0-25.1); HYALINE CASTS 5 /uL (0-3.1); URINE APPEARANCE CLEAR; URINE BACTERIA 3865 /uL (0-1359); URINE BILIRUBIN NEGATIVE (NEGATIVE); URINE COLOR YELLOW; URINE GLUCOSE (UA) NEGATIVE (NEGATIVE); URINE KETONE NEGATIVE (NEGATIVE); URINE LEUK ESTERASE 2+ (NEGATIVE); URINE NITRITE POSITIVE (NEGATIVE); URINE PROTEIN NEGATIVE (NEGATIVE); URINE RBC 14 /uL (0-23.9); URINE UROBILINOGEN 0.2 mg/dL (0.2-1.0); URINE WBC 171 /uL (0-25.8)
[2022-05-28 19:12] LABS: CALCIUM 8.9 mg/dL (8.5-10.1)
[2022-05-28 19:13] LABS: ALBUMIN 3.4 g/dl (3.4-5.0); BLOOD UREA NITROGEN 13.3 mg/dL (7-18)
[2022-05-28 19:16] LABS: CREATININE 0.4 mg/dL (0.55-1.3)
[2022-05-28 19:17] LABS: BILIRUBIN,TOTAL 0.3 mg/dL (0.2-1)
[2022-05-28 19:18] LABS: TOT PROT 7.8 g/dl (6.4-8.2)
[2022-05-29] MEDS ORDERED: MEROPENEM 1 GM in DEXTROSE 5%-WATER 100 ML IVPB ONE (04:39)
[2022-05-29] MEDS: levOCARNitine 500 MG/5 ML SOLUTION GT SCH ×3 (07:03→22:40)
[2022-05-29] MEDS: INSULIN SLIDING SCALE (NOVOLOG) 1 VIAL SQ SCH ×4 (07:04→22:41)
[2022-05-29] MEDS: LEVOTHYROXINE NA 75 MCG TABLET (FP) PEG SCH (07:04)
[2022-05-29] MEDS: IPRATROPIUM BR 0.02% 0.5 MG/2.5 ML VIAL.NEB. NEB SCH ×4 (07:40→20:05)
[2022-05-29 09:01] LABS: HEMATOCRIT 38.3 % (32.4-45.2); HEMOGLOBIN 13.6 GM/dL (10.7-15.3); MCH 30.9 pg (25.7-33.7); MCHC 35.6 g/dl (32.0-36.0); MEAN CELL VOLUME 86.7 fl (80-96); MEAN PLT VOLUME 7.2 fl (7.5-11.1); PLATELET COUNT 294 10^3/uL (134-434); RBC 4.42 M/mm3 (3.60-5.2); WHITE BLOOD COUNT 6.1 K/mm3 (4.0-10.0)
[2022-05-29] MEDS: METOPROLOL TARTRATE 25 MG TABLET (FP) PEG SCH ×2 (09:34→22:37)
[2022-05-29] MEDS: ENOXAPARIN NA (PORCINE) 40 MG/0.4 ML DISP.SYRIN SQ SCH (09:35)
[2022-05-29] MEDS: FAMOTIDINE 40 MG/5 ML ORAL SUSPENSION PEG SCH ×2 (09:36→22:41)
[2022-05-29 09:37] LABS: CALCIUM 8.6 mg/dL (8.5-10.1)
[2022-05-29] MEDS: PERAMPANEL 2 MG GT SCH (09:37)
[2022-05-29 09:52] LABS: MAGNESIUM 2.4 mg/dL (1.8-2.4)
[2022-05-29 09:55] LABS: ALBUMIN 3.2 g/dl (3.4-5.0); BILIRUBIN,TOTAL 0.2 mg/dL (0.2-1); BLOOD UREA NITROGEN 24.7 mg/dL (7-18); CREATININE 0.4 mg/dL (0.55-1.3); PHOSPHOROUS 2.7 mg/dL (2.5-4.9); TOT PROT 7.3 g/dl (6.4-8.2)
[2022-05-29] MEDS: AZTREONAM 1 GM in DEXTROSE 5%-WATER - 50 ML IVPB SCH ×2 (11:04→18:37)
[2022-05-29 11:21] VITALS: BMI 19.7
[2022-05-29] MEDS: Lacosamide 50 MG/5 ML ORAL SOLUTION UNIT CUPS PEG SCH ×2 (11:46→22:41)
[2022-05-29] MEDS: LACTOBACILLUS ACIDOPHILUS 1 TABLET PEG SCH (22:37)
[2022-05-30] MEDS: AZTREONAM 1 GM in DEXTROSE 5%-WATER - 50 ML IVPB SCH ×3 (01:45→17:40)
[2022-05-30] MEDS: levOCARNitine 500 MG/5 ML SOLUTION GT SCH ×3 (07:11→22:29)
[2022-05-30] MEDS: LEVOTHYROXINE NA 75 MCG TABLET (FP) PEG SCH (07:12)
[2022-05-30] MEDS: INSULIN SLIDING SCALE (NOVOLOG) 1 VIAL SQ SCH ×4 (07:12→22:45)
[2022-05-30] MEDS: IPRATROPIUM BR 0.02% 0.5 MG/2.5 ML VIAL.NEB. NEB SCH ×4 (07:48→20:05)
[2022-05-30] MEDS: METOPROLOL TARTRATE 25 MG TABLET (FP) PEG SCH ×2 (11:10→22:30)
[2022-05-30] MEDS: FAMOTIDINE 40 MG/5 ML ORAL SUSPENSION PEG SCH ×2 (11:12→22:27)
[2022-05-30] MEDS: ENOXAPARIN NA (PORCINE) 40 MG/0.4 ML DISP.SYRIN SQ SCH (11:12)
[2022-05-30] MEDS: PERAMPANEL 2 MG GT SCH (11:13)
[2022-05-30] MEDS: Lacosamide 50 MG/5 ML ORAL SOLUTION UNIT CUPS PEG SCH ×2 (11:14→22:28)
[2022-05-30] MEDS ORDERED: METOPROLOL TARTRATE 25 MG TABLET (FP) GT SCH (11:45)
[2022-05-30] MEDS: LACTOBACILLUS ACIDOPHILUS 1 TABLET PEG SCH (22:28)
[2022-05-31] MEDS: AZTREONAM 1 GM in DEXTROSE 5%-WATER - 50 ML IVPB SCH ×3 (01:59→17:31)
[2022-05-31] MEDS: levOCARNitine 500 MG/5 ML SOLUTION GT SCH ×3 (05:59→21:24)
[2022-05-31] MEDS: LEVOTHYROXINE NA 75 MCG TABLET (FP) PEG SCH (05:59)
[2022-05-31] MEDS: INSULIN SLIDING SCALE (NOVOLOG) 1 VIAL SQ SCH ×4 (05:59→21:37)
[2022-05-31] MEDS: IPRATROPIUM BR 0.02% 0.5 MG/2.5 ML VIAL.NEB. NEB SCH ×4 (07:52→20:09)
[2022-05-31 08:59] LABS: HEMATOCRIT 41.4 % (32.4-45.2); HEMOGLOBIN 14.3 GM/dL (10.7-15.3); MCH 30.4 pg (25.7-33.7); MCHC 34.4 g/dl (32.0-36.0); MEAN CELL VOLUME 88.2 fl (80-96); MEAN PLT VOLUME 7.3 fl (7.5-11.1); PLATELET COUNT 290 10^3/uL (134-434); RDW 13.2 % (11.6-15.6); WHITE BLOOD COUNT 3.6 K/mm3 (4.0-10.0)
[2022-05-31] MEDS: METOPROLOL TARTRATE 25 MG TABLET (FP) PEG SCH ×2 (09:08→21:21)
[2022-05-31] MEDS: ENOXAPARIN NA (PORCINE) 40 MG/0.4 ML DISP.SYRIN SQ SCH (09:09)
[2022-05-31] MEDS: PERAMPANEL 2 MG GT SCH (09:10)
[2022-05-31 09:12] LABS: ALBUMIN 3.1 g/dl (3.4-5.0); BLOOD UREA NITROGEN 10.6 mg/dL (7-18); CALCIUM 9.1 mg/dL (8.5-10.1)
[2022-05-31 09:15] LABS: CREATININE 0.4 mg/dL (0.55-1.3)
[2022-05-31] MEDS: Lacosamide 50 MG/5 ML ORAL SOLUTION UNIT CUPS PEG SCH ×2 (09:15→21:19)
[2022-05-31] MEDS: FAMOTIDINE 40 MG/5 ML ORAL SUSPENSION PEG SCH ×2 (09:16→21:20)
[2022-05-31 09:17] LABS: BILIRUBIN,TOTAL 0.6 mg/dL (0.2-1); TOT PROT 7.1 g/dl (6.4-8.2)
[2022-05-31] MEDS ORDERED: INSULIN (NOVOLOG) ASPART 100 UNITS/ML 10ML VIAL ONE (21:17)
[2022-05-31] MEDS: LACTOBACILLUS ACIDOPHILUS 1 TABLET PEG SCH (21:18)
[2022-06-01] MEDS: AZTREONAM 1 GM in DEXTROSE 5%-WATER - 50 ML IVPB SCH ×3 (01:09→17:35)
[2022-06-01] MEDS: levOCARNitine 500 MG/5 ML SOLUTION GT SCH ×3 (06:39→21:15)
[2022-06-01] MEDS: LEVOTHYROXINE NA 75 MCG TABLET (FP) PEG SCH (06:40)
[2022-06-01] MEDS: INSULIN SLIDING SCALE (NOVOLOG) 1 VIAL SQ SCH ×4 (06:41→21:28)
[2022-06-01] MEDS: IPRATROPIUM BR 0.02% 0.5 MG/2.5 ML VIAL.NEB. NEB SCH ×4 (07:34→20:15)
[2022-06-01] MEDS: ENOXAPARIN NA (PORCINE) 40 MG/0.4 ML DISP.SYRIN SQ SCH (09:34)
[2022-06-01] MEDS: Lacosamide 50 MG/5 ML ORAL SOLUTION UNIT CUPS PEG SCH ×2 (09:34→21:18)
[2022-06-01] MEDS: METOPROLOL TARTRATE 25 MG TABLET (FP) PEG SCH ×2 (09:34→21:17)
[2022-06-01] MEDS: FAMOTIDINE 40 MG/5 ML ORAL SUSPENSION PEG SCH ×2 (09:36→21:18)
[2022-06-01] MEDS: PERAMPANEL 2 MG GT SCH (09:37)
[2022-06-01] MEDS: LACTOBACILLUS ACIDOPHILUS 1 TABLET PEG SCH (21:14)
[2022-06-02] MEDS: AZTREONAM 1 GM in DEXTROSE 5%-WATER - 50 ML IVPB SCH ×3 (01:21→17:41)
[2022-06-02] MEDS: levOCARNitine 500 MG/5 ML SOLUTION GT SCH ×3 (06:23→23:24)
[2022-06-02] MEDS: LEVOTHYROXINE NA 75 MCG TABLET (FP) PEG SCH (06:24)
[2022-06-02] MEDS: INSULIN SLIDING SCALE (NOVOLOG) 1 VIAL SQ SCH ×4 (06:33→23:33)
[2022-06-02] MEDS: IPRATROPIUM BR 0.02% 0.5 MG/2.5 ML VIAL.NEB. NEB SCH ×4 (08:50→20:37)
[2022-06-02 09:47] LABS: HEMATOCRIT 39.9 % (32.4-45.2); HEMOGLOBIN 13.8 GM/dL (10.7-15.3); MCH 30.2 pg (25.7-33.7); MCHC 34.5 g/dl (32.0-36.0); MEAN CELL VOLUME 87.4 fl (80-96); PLATELET COUNT 285 10^3/uL (134-434); RBC 4.57 M/mm3 (3.60-5.2); WHITE BLOOD COUNT 3.4 K/mm3 (4.0-10.0)
[2022-06-02] MEDS: ENOXAPARIN NA (PORCINE) 40 MG/0.4 ML DISP.SYRIN SQ SCH (09:51)
[2022-06-02] MEDS: METOPROLOL TARTRATE 25 MG TABLET (FP) PEG SCH ×2 (09:51→23:21)
[2022-06-02] MEDS: PERAMPANEL 2 MG GT SCH (09:52)
[2022-06-02] MEDS: FAMOTIDINE 40 MG/5 ML ORAL SUSPENSION PEG SCH ×2 (09:52→23:25)
[2022-06-02] MEDS: Lacosamide 50 MG/5 ML ORAL SOLUTION UNIT CUPS PEG SCH ×2 (09:53→23:20)
[2022-06-02 10:12] LABS: BLOOD UREA NITROGEN 11.7 mg/dL (7-18)
[2022-06-02 10:17] LABS: BILIRUBIN,TOTAL 0.4 mg/dL (0.2-1); CREATININE 0.3 mg/dL (0.55-1.3); TOT PROT 6.9 g/dl (6.4-8.2)
[2022-06-02] MEDS: LACTOBACILLUS ACIDOPHILUS 1 TABLET PEG SCH (23:21)
[2022-06-03] MEDS: AZTREONAM 1 GM in DEXTROSE 5%-WATER - 50 ML IVPB SCH ×3 (01:47→17:54)
[2022-06-03] MEDS: LEVOTHYROXINE NA 75 MCG TABLET (FP) PEG SCH (06:53)
[2022-06-03] MEDS: levOCARNitine 500 MG/5 ML SOLUTION GT SCH ×3 (06:53→22:51)
[2022-06-03] MEDS: INSULIN SLIDING SCALE (NOVOLOG) 1 VIAL SQ SCH ×4 (06:58→22:57)
[2022-06-03 10:09] LABS: HEMATOCRIT 40.1 % (32.4-45.2); HEMOGLOBIN 13.5 GM/dL (10.7-15.3); MCH 29.8 pg (25.7-33.7); MCHC 33.7 g/dl (32.0-36.0); MEAN CELL VOLUME 88.5 fl (80-96); MEAN PLT VOLUME 7.6 fl (7.5-11.1); PLATELET COUNT 271 10^3/uL (134-434); RBC 4.53 M/mm3 (3.60-5.2); WHITE BLOOD COUNT 3.3 K/mm3 (4.0-10.0)
[2022-06-03] MEDS: Lacosamide 50 MG/5 ML ORAL SOLUTION UNIT CUPS PEG SCH ×2 (10:31→22:50)
[2022-06-03] MEDS: ENOXAPARIN NA (PORCINE) 40 MG/0.4 ML DISP.SYRIN SQ SCH (10:31)
[2022-06-03] MEDS: METOPROLOL TARTRATE 25 MG TABLET (FP) PEG SCH ×2 (10:32→22:50)
[2022-06-03] MEDS: FAMOTIDINE 40 MG/5 ML ORAL SUSPENSION PEG SCH ×2 (10:32→22:51)
[2022-06-03] MEDS: PERAMPANEL 2 MG GT SCH (10:33)
[2022-06-03 10:48] LABS: BLOOD UREA NITROGEN 11.1 mg/dL (7-18); CALCIUM 8.7 mg/dL (8.5-10.1)
[2022-06-03 10:52] LABS: CREATININE 0.2 mg/dL (0.55-1.3)
[2022-06-03 15:32] VITALS: RESP 20
[2022-06-03] MEDS: LACTOBACILLUS ACIDOPHILUS 1 TABLET PEG SCH (22:50)
[2022-06-04] MEDS: AZTREONAM 1 GM in DEXTROSE 5%-WATER - 50 ML IVPB SCH ×2 (02:22→09:47)
[2022-06-04] MEDS: LEVOTHYROXINE NA 75 MCG TABLET (FP) PEG SCH (06:25)
[2022-06-04] MEDS: levOCARNitine 500 MG/5 ML SOLUTION GT SCH ×2 (06:25→13:45)
[2022-06-04] MEDS: INSULIN SLIDING SCALE (NOVOLOG) 1 VIAL SQ SCH ×3 (06:51→16:37)
[2022-06-04 08:12] LABS: HEMOGLOBIN 13.3 GM/dL (10.7-15.3); MCH 30.3 pg (25.7-33.7); MCHC 34.1 g/dl (32.0-36.0); MEAN CELL VOLUME 88.8 fl (80-96); MEAN PLT VOLUME 8.2 fl (7.5-11.1); PLATELET COUNT 252 10^3/uL (134-434); RDW 12.9 % (11.6-15.6); WHITE BLOOD COUNT 4.2 K/mm3 (4.0-10.0)
[2022-06-04 08:35] LABS: CALCIUM 8.5 mg/dL (8.5-10.1)
[2022-06-04 08:36] LABS: BLOOD UREA NITROGEN 13.5 mg/dL (7-18)
[2022-06-04 08:39] LABS: CREATININE 0.3 mg/dL (0.55-1.3)
[2022-06-04] MEDS: ENOXAPARIN NA (PORCINE) 40 MG/0.4 ML DISP.SYRIN SQ SCH (09:48)
[2022-06-04] MEDS: METOPROLOL TARTRATE 25 MG TABLET (FP) PEG SCH (09:48)
[2022-06-04] MEDS: Lacosamide 50 MG/5 ML ORAL SOLUTION UNIT CUPS PEG SCH (09:48)
[2022-06-04] MEDS: FAMOTIDINE 40 MG/5 ML ORAL SUSPENSION PEG SCH (09:51)
[2022-06-04] MEDS: PERAMPANEL 2 MG GT SCH (09:51)
[2022-06-04 15:06] VITALS: BP 112/78; PULSE 87; TEMP 97.9
== END 2022-06-04 04:48 | disposition home or self-care (01) | DRG 689 ==
LOC: JER 16:16 → JERBED 16:54 → J8W 23:45
PROVIDERS: ADMIT Internal Medicine; ATTEND Internal Medicine
DX: N39.0 Urinary tract infection, site not specified (principal); R53.2 Functional quadriplegia; G31.82 Leigh's disease; F73 Profound intellectual disabilities; B96.89 Other specified bacterial agents as the cause of diseases classified elsewhere; F79 Unspecified intellectual disabilities; E06.3 Autoimmune thyroiditis; G40.909 Epilepsy, unspecified, not intractable, without status epilepticus; Z88.1 Allergy status to other antibiotic agents; K31.89 Other diseases of stomach and duodenum; Z86.73 Personal history of transient ischemic attack (TIA), and cerebral infarction without residual deficits
CPT/HCPCS: 0241U-QW; 36415; 71045-TC-FY; 80048; 80053; 81003; 82962; 83735; 84100; 85025; 85027; 87040; 87086; 87186; 93005; 93010; 94640; 99285-25; C9803-CS; J3243; U0003; U0005

== ENCOUNTER 2022-07-25 15:02 | Inpatient (IN) | payer OTHER ==
[2022-07-25] MEDS ORDERED: MEROPENEM 1 GM in DEXTROSE 5%-WATER 100 ML IVPB ONE (17:26)
[2022-07-25 17:59] LABS: BASO % 0.5 % (0-2.0); EOS % 2.5 % (0-4.5); HEMATOCRIT 40.9 % (32.4-45.2); HEMOGLOBIN 14.1 GM/dL (10.7-15.3); LYMPH % 31.4 % (8-40); MCH 30.3 pg (25.7-33.7); MCHC 34.4 g/dl (32.0-36.0); MONO % 12.9 % (3.8-10.2); NEUT % 52.7 % (42.8-82.8); RBC 4.64 M/mm3 (3.60-5.2); RDW 11.9 % (11.6-15.6)
[2022-07-25 18:13] LABS: ALBUMIN 3.2 g/dl (3.4-5.0); BLOOD UREA NITROGEN 11.8 mg/dL (7-18); CALCIUM 8.9 mg/dL (8.5-10.1)
[2022-07-25 18:18] LABS: CREATININE 0.3 mg/dL (0.55-1.3)
[2022-07-25 18:19] LABS: BILIRUBIN,TOTAL 0.4 mg/dL (0.2-1); TOT PROT 7.7 g/dl (6.4-8.2)
[2022-07-25] MEDS ORDERED: MEROPENEM 1 GM VIAL (RESTRICTED TO ID) IVPB ONE (18:27)
[2022-07-25 21:14] LABS: EPI CELLS 10 /uL (0-25.1); HYALINE CASTS 3 /uL (0-3.1); URINE APPEARANCE CLOUDY; URINE BACTERIA >9,000 /uL (0-1359); URINE BILIRUBIN NEGATIVE (NEGATIVE); URINE COLOR YELLOW; URINE GLUCOSE (UA) NEGATIVE (NEGATIVE); URINE KETONE TRACE (NEGATIVE); URINE LEUK ESTERASE 3+ (NEGATIVE); URINE NITRITE POSITIVE (NEGATIVE); URINE PROTEIN NEGATIVE (NEGATIVE); URINE RBC 30 /uL (0-23.9); URINE UROBILINOGEN 0.2 mg/dL (0.2-1.0); URINE WBC 1786 /uL (0-25.8)
[2022-07-25] MEDS: NYSTATIN 100,000 UNIT/GM TOPICAL CREAM 15 GM TUBE TP SCH (22:17)
[2022-07-26 03:21] VITALS: BMI 22.6
[2022-07-26] MEDS ORDERED: MEROPENEM 1 GM VIAL (RESTRICTED TO ID) IVPB ONE (04:20)
[2022-07-26] MEDS: MEROPENEM 1 GM in DEXTROSE 5%-WATER 100 ML IVPB SCH ×3 (04:24→17:13)
[2022-07-26] MEDS: INSULIN SLIDING SCALE (NOVOLOG) 1 VIAL SQ SCH ×4 (06:11→21:30)
[2022-07-26] MEDS: LEVOTHYROXINE NA 75 MCG TABLET (FP) PEG SCH (08:00)
[2022-07-26] MEDS: ENOXAPARIN NA (PORCINE) 40 MG/0.4 ML DISP.SYRIN SQ SCH (09:56)
[2022-07-26] MEDS: Lacosamide 50 MG/5 ML ORAL SOLUTION UNIT CUPS GT SCH ×2 (09:56→21:30)
[2022-07-26] MEDS: NYSTATIN 100,000 UNIT/GM TOPICAL CREAM 15 GM TUBE TP SCH (09:57)
[2022-07-26] MEDS: levOCARNitine 500 MG/5 ML SOLUTION GT SCH ×2 (13:14→21:34)
[2022-07-26 13:34] LABS: BLOOD UREA NITROGEN 11.9 mg/dL (7-18); CALCIUM 8.4 mg/dL (8.5-10.1); MAGNESIUM 2.4 mg/dL (1.8-2.4)
[2022-07-26 13:37] LABS: PHOSPHOROUS 4.4 mg/dL (2.5-4.9)
[2022-07-26 13:38] LABS: BASO % 0.3 % (0-2.0); CREATININE 0.3 mg/dL (0.55-1.3); EOS % 1.6 % (0-4.5); HEMATOCRIT 38.7 % (32.4-45.2); LYMPH % 24.1 % (8-40); MCH 29.7 pg (25.7-33.7); MCHC 33.5 g/dl (32.0-36.0); MEAN CELL VOLUME 88.7 fl (80-96); MEAN PLT VOLUME 7.2 fl (7.5-11.1); MONO % 12.8 % (3.8-10.2); NEUT % 61.2 % (42.8-82.8); PLATELET COUNT 355 10^3/uL (134-434); RBC 4.36 M/mm3 (3.60-5.2); RDW 12.1 % (11.6-15.6); WHITE BLOOD COUNT 4.8 K/mm3 (4.0-10.0)
[2022-07-26 13:39] LABS: BILIRUBIN,TOTAL 0.4 mg/dL (0.2-1); TOT PROT 6.7 g/dl (6.4-8.2)
[2022-07-26] MEDS ORDERED: NYSTATIN 100,000 UNIT/GM TOPICAL CREAM 15 GM TUBE TP SCH (14:00)
[2022-07-26] MEDS: IPRATROPIUM BR 0.02% 0.5 MG/2.5 ML VIAL.NEB. NEB SCH (20:35)
[2022-07-26] MEDS: CHOLECALCIFEROL (VIT D SOLUTION) 400 UNIT/1 ML DROPS GT SCH (21:31)
[2022-07-26] MEDS: CLOTRIMAZOLE 1% CREAM TP SCH (21:32)
[2022-07-26] MEDS: FAMOTIDINE 40 MG/5 ML ORAL SUSPENSION GT SCH (21:32)
[2022-07-26] MEDS: ASCORBIC ACID 500 MG/5 ML UNIT DOSE CUP GT SCH (21:34)
[2022-07-26] MEDS: METOPROLOL TARTRATE 25 MG TABLET (FP) GT SCH (21:38)
[2022-07-26] MEDS: LACTOBACILLUS ACIDOPHILUS 1 TABLET GT SCH (21:39)
[2022-07-26] MEDS ORDERED: FAMOTIDINE 40 MG/5 ML ORAL SUSPENSION PEG SCH (22:00)
[2022-07-26] MEDS ORDERED: FAMOTIDINE 20 MG TABLET PO SCH (22:00)
[2022-07-26] MEDS ORDERED: LACOSAMIDE 200 MG TABLET PO SCH (22:00)
[2022-07-27] MEDS: MEROPENEM 1 GM in DEXTROSE 5%-WATER 100 ML IVPB SCH ×3 (01:25→17:17)
[2022-07-27] MEDS ORDERED: MEROPENEM 1 GM in DEXTROSE 5%-WATER 100 ML IVPB SCH (02:00)
[2022-07-27] MEDS: LEVOTHYROXINE NA 75 MCG TABLET (FP) PEG SCH (06:25)
[2022-07-27] MEDS: levOCARNitine 500 MG/5 ML SOLUTION GT SCH ×3 (06:25→21:36)
[2022-07-27] MEDS: INSULIN SLIDING SCALE (NOVOLOG) 1 VIAL SQ SCH ×4 (06:30→21:32)
[2022-07-27] MEDS: IPRATROPIUM BR 0.02% 0.5 MG/2.5 ML VIAL.NEB. NEB SCH ×4 (07:25→20:38)
[2022-07-27] MEDS: ENOXAPARIN NA (PORCINE) 40 MG/0.4 ML DISP.SYRIN SQ SCH (09:55)
[2022-07-27] MEDS: METOPROLOL TARTRATE 25 MG TABLET (FP) GT SCH ×2 (09:57→21:39)
[2022-07-27] MEDS: THIAMINE HCL 100 MG TABLET (FP) NGT SCH (09:57)
[2022-07-27] MEDS: CLOTRIMAZOLE 1% CREAM TP SCH ×2 (09:58→21:36)
[2022-07-27] MEDS: Lacosamide 50 MG/5 ML ORAL SOLUTION UNIT CUPS GT SCH ×2 (09:58→21:32)
[2022-07-27] MEDS: ASCORBIC ACID 500 MG/5 ML UNIT DOSE CUP GT SCH ×2 (09:59→21:37)
[2022-07-27] MEDS: CHOLECALCIFEROL (VIT D SOLUTION) 400 UNIT/1 ML DROPS GT SCH ×2 (09:59→21:35)
[2022-07-27] MEDS: FERROUS SO4 15 MG/ML *PEDIATRIC* ORAL SOLN- 50ML BTL GT SCH (10:47)
[2022-07-27 11:07] LABS: BASO % 0.3 % (0-2.0); EOS % 2.1 % (0-4.5); HEMATOCRIT 38.6 % (32.4-45.2); HEMOGLOBIN 13.1 GM/dL (10.7-15.3); LYMPH % 24.7 % (8-40); MCH 29.8 pg (25.7-33.7); MEAN CELL VOLUME 87.5 fl (80-96); MEAN PLT VOLUME 7.3 fl (7.5-11.1); MONO % 8.1 % (3.8-10.2); NEUT % 64.8 % (42.8-82.8); PLATELET COUNT 352 10^3/uL (134-434); RBC 4.41 M/mm3 (3.60-5.2); RDW 11.9 % (11.6-15.6); WHITE BLOOD COUNT 4.5 K/mm3 (4.0-10.0)
[2022-07-27 11:28] LABS: BLOOD UREA NITROGEN 14.6 mg/dL (7-18); CALCIUM 9.1 mg/dL (8.5-10.1); MAGNESIUM 2.2 mg/dL (1.8-2.4)
[2022-07-27 11:29] LABS: ALBUMIN 2.8 g/dl (3.4-5.0)
[2022-07-27 11:31] LABS: CREATININE 0.4 mg/dL (0.55-1.3)
[2022-07-27 11:33] LABS: BILIRUBIN,TOTAL 0.3 mg/dL (0.2-1); TOT PROT 6.6 g/dl (6.4-8.2)
[2022-07-27] MEDS: LACTOBACILLUS ACIDOPHILUS 1 TABLET GT SCH (21:34)
[2022-07-27] MEDS: FAMOTIDINE 40 MG/5 ML ORAL SUSPENSION GT SCH (21:36)
[2022-07-28] MEDS: MEROPENEM 1 GM in DEXTROSE 5%-WATER 100 ML IVPB SCH ×3 (01:20→17:16)
[2022-07-28] MEDS: INSULIN SLIDING SCALE (NOVOLOG) 1 VIAL SQ SCH ×4 (06:06→23:58)
[2022-07-28] MEDS: levOCARNitine 500 MG/5 ML SOLUTION GT SCH ×3 (06:06→23:14)
[2022-07-28] MEDS: LEVOTHYROXINE NA 75 MCG TABLET (FP) PEG SCH (06:07)
[2022-07-28] MEDS: IPRATROPIUM BR 0.02% 0.5 MG/2.5 ML VIAL.NEB. NEB SCH ×5 (08:05→23:46)
[2022-07-28] MEDS: ENOXAPARIN NA (PORCINE) 40 MG/0.4 ML DISP.SYRIN SQ SCH (09:51)
[2022-07-28] MEDS: CHOLECALCIFEROL (VIT D SOLUTION) 400 UNIT/1 ML DROPS GT SCH ×2 (09:52→23:14)
[2022-07-28] MEDS: FERROUS SO4 15 MG/ML *PEDIATRIC* ORAL SOLN- 50ML BTL GT SCH (09:52)
[2022-07-28] MEDS: Lacosamide 50 MG/5 ML ORAL SOLUTION UNIT CUPS GT SCH ×2 (09:53→23:10)
[2022-07-28] MEDS: CLOTRIMAZOLE 1% CREAM TP SCH ×2 (09:54→23:24)
[2022-07-28] MEDS: ASCORBIC ACID 500 MG/5 ML UNIT DOSE CUP GT SCH ×2 (09:54→23:32)
[2022-07-28] MEDS: METOPROLOL TARTRATE 25 MG TABLET (FP) GT SCH ×2 (09:54→23:15)
[2022-07-28] MEDS: THIAMINE HCL 100 MG TABLET (FP) NGT SCH (09:54)
[2022-07-28 11:59] LABS: HEMATOCRIT 39.5 % (32.4-45.2); HEMOGLOBIN 13.2 GM/dL (10.7-15.3); MCH 29.6 pg (25.7-33.7); MCHC 33.4 g/dl (32.0-36.0); MEAN CELL VOLUME 88.7 fl (80-96); MEAN PLT VOLUME 7.6 fl (7.5-11.1); PLATELET COUNT 387 10^3/uL (134-434); RBC 4.45 M/mm3 (3.60-5.2); WHITE BLOOD COUNT 4.6 K/mm3 (4.0-10.0)
[2022-07-28 12:23] LABS: ALBUMIN 2.9 g/dl (3.4-5.0); BLOOD UREA NITROGEN 15.2 mg/dL (7-18)
[2022-07-28 12:26] LABS: CREATININE 0.4 mg/dL (0.55-1.3)
[2022-07-28 12:27] LABS: BILIRUBIN,TOTAL 0.3 mg/dL (0.2-1)
[2022-07-28] MEDS ORDERED: FLUCONAZOLE 40 MG/ML SUSPENSION GT SCH (17:00)
[2022-07-28] MEDS: MAGNESIUM HYDROX 2400MG/30ML ORAL SUSPENSION 30 ML CUP GT SCH (23:10)
[2022-07-28] MEDS: DOCUSATE NA 100 MG/10 ML UNIT-DOSE CUPS GT SCH (23:10)
[2022-07-28] MEDS: SENNOSIDES 8.8 MG/5 ML BULK BOTTLE GT SCH (23:13)
[2022-07-28] MEDS: FAMOTIDINE 40 MG/5 ML ORAL SUSPENSION GT SCH (23:14)
[2022-07-28] MEDS: LACTOBACILLUS ACIDOPHILUS 1 TABLET GT SCH (23:15)
[2022-07-28] MEDS: PERAMPANEL 2 MG GT SCH ×2 (23:45→23:46)
[2022-07-28] MEDS: CO Q10 100 MG GT SCH (23:46)
[2022-07-28] MEDS: [UNRECOGNIZED DRUG - OTHER] GT SCH (23:46)
[2022-07-29] MEDS: PERAMPANEL 2 MG GT SCH ×5 (00:40→21:09)
[2022-07-29] MEDS: MEROPENEM 1 GM in DEXTROSE 5%-WATER 100 ML IVPB SCH ×3 (02:16→18:08)
[2022-07-29] MEDS: levOCARNitine 500 MG/5 ML SOLUTION GT SCH ×3 (06:54→21:08)
[2022-07-29] MEDS: LEVOTHYROXINE NA 75 MCG TABLET (FP) PEG SCH (06:54)
[2022-07-29] MEDS: INSULIN SLIDING SCALE (NOVOLOG) 1 VIAL SQ SCH ×4 (07:18→21:31)
[2022-07-29] MEDS: IPRATROPIUM BR 0.02% 0.5 MG/2.5 ML VIAL.NEB. NEB SCH ×4 (07:57→20:37)
[2022-07-29] MEDS: CO Q10 100 MG GT SCH (08:30)
[2022-07-29] MEDS: METOPROLOL TARTRATE 25 MG TABLET (FP) GT SCH ×2 (10:55→21:12)
[2022-07-29] MEDS: ENOXAPARIN NA (PORCINE) 40 MG/0.4 ML DISP.SYRIN SQ SCH (10:55)
[2022-07-29] MEDS: Lacosamide 50 MG/5 ML ORAL SOLUTION UNIT CUPS GT SCH ×2 (10:56→21:08)
[2022-07-29] MEDS: THIAMINE HCL 100 MG TABLET (FP) NGT SCH (10:56)
[2022-07-29] MEDS: CLOTRIMAZOLE 1% CREAM TP SCH ×2 (10:59→21:12)
[2022-07-29] MEDS: FERROUS SO4 15 MG/ML *PEDIATRIC* ORAL SOLN- 50ML BTL GT SCH (10:59)
[2022-07-29] MEDS: ASCORBIC ACID 500 MG/5 ML UNIT DOSE CUP GT SCH ×2 (11:01→21:11)
[2022-07-29 11:49] LABS: BASO % 0.4 % (0-2.0); EOS % 3.7 % (0-4.5); HEMATOCRIT 40.3 % (32.4-45.2); HEMOGLOBIN 13.7 GM/dL (10.7-15.3); LYMPH % 27.9 % (8-40); MCH 29.9 pg (25.7-33.7); MCHC 34.1 g/dl (32.0-36.0); MEAN CELL VOLUME 87.8 fl (80-96); MEAN PLT VOLUME 7.4 fl (7.5-11.1); MONO % 12.2 % (3.8-10.2); NEUT % 55.8 % (42.8-82.8); PLATELET COUNT 380 10^3/uL (134-434); RDW 12.2 % (11.6-15.6); WHITE BLOOD COUNT 5.1 K/mm3 (4.0-10.0)
[2022-07-29 12:10] LABS: CALCIUM 9.2 mg/dL (8.5-10.1)
[2022-07-29 12:11] LABS: BLOOD UREA NITROGEN 13.8 mg/dL (7-18); MAGNESIUM 2.3 mg/dL (1.8-2.4)
[2022-07-29 12:14] LABS: CREATININE 0.4 mg/dL (0.55-1.3)
[2022-07-29 12:15] LABS: PHOSPHOROUS 3.6 mg/dL (2.5-4.9); TOT PROT 7.2 g/dl (6.4-8.2)
[2022-07-29 12:17] LABS: BILIRUBIN,TOTAL 0.2 mg/dL (0.2-1)
[2022-07-29] MEDS: CHOLECALCIFEROL (VIT D SOLUTION) 400 UNIT/1 ML DROPS GT SCH ×2 (12:34→21:08)
[2022-07-29] MEDS ORDERED: BISACODYL 10 MG SUPP.RECT PR PRN (15:46)
[2022-07-29] MEDS: SENNOSIDES 8.8 MG/5 ML BULK BOTTLE GT SCH (21:08)
[2022-07-29] MEDS: DOCUSATE NA 100 MG/10 ML UNIT-DOSE CUPS GT SCH (21:08)
[2022-07-29] MEDS: FAMOTIDINE 40 MG/5 ML ORAL SUSPENSION GT SCH (21:08)
[2022-07-29] MEDS: LACTOBACILLUS ACIDOPHILUS 1 TABLET GT SCH (21:09)
[2022-07-30] MEDS: MAGNESIUM HYDROX 2400MG/30ML ORAL SUSPENSION 30 ML CUP GT SCH (00:21)
[2022-07-30] MEDS: MEROPENEM 1 GM in DEXTROSE 5%-WATER 100 ML IVPB SCH ×3 (02:00→17:35)
[2022-07-30] MEDS: LEVOTHYROXINE NA 75 MCG TABLET (FP) PEG SCH (06:31)
[2022-07-30] MEDS: levOCARNitine 500 MG/5 ML SOLUTION GT SCH ×3 (06:31→22:20)
[2022-07-30] MEDS: IPRATROPIUM BR 0.02% 0.5 MG/2.5 ML VIAL.NEB. NEB SCH ×4 (07:18→20:25)
[2022-07-30] MEDS: FERROUS SO4 15 MG/ML *PEDIATRIC* ORAL SOLN- 50ML BTL GT SCH (09:39)
[2022-07-30] MEDS: METOPROLOL TARTRATE 25 MG TABLET (FP) GT SCH ×2 (09:40→22:20)
[2022-07-30] MEDS: CLOTRIMAZOLE 1% CREAM TP SCH ×2 (09:43→22:21)
[2022-07-30] MEDS: ENOXAPARIN NA (PORCINE) 40 MG/0.4 ML DISP.SYRIN SQ SCH (09:43)
[2022-07-30] MEDS: CHOLECALCIFEROL (VIT D SOLUTION) 400 UNIT/1 ML DROPS GT SCH (09:46)
[2022-07-30] MEDS: Lacosamide 50 MG/5 ML ORAL SOLUTION UNIT CUPS GT SCH ×2 (09:46→22:21)
[2022-07-30] MEDS: THIAMINE HCL 100 MG TABLET (FP) NGT SCH (09:48)
[2022-07-30 10:02] LABS: BASO % 0.2 % (0-2.0); EOS % 5.1 % (0-4.5); HEMATOCRIT 39.6 % (32.4-45.2); HEMOGLOBIN 13.5 GM/dL (10.7-15.3); LYMPH % 32.1 % (8-40); MCH 29.8 pg (25.7-33.7); MCHC 34.1 g/dl (32.0-36.0); MEAN CELL VOLUME 87.5 fl (80-96); MEAN PLT VOLUME 7.5 fl (7.5-11.1); MONO % 13.5 % (3.8-10.2); NEUT % 49.1 % (42.8-82.8); PLATELET COUNT 375 10^3/uL (134-434); RBC 4.53 M/mm3 (3.60-5.2); RDW 11.9 % (11.6-15.6); WHITE BLOOD COUNT 4.5 K/mm3 (4.0-10.0)
[2022-07-30 10:28] LABS: CALCIUM 8.6 mg/dL (8.5-10.1)
[2022-07-30 10:29] LABS: ALBUMIN 2.9 g/dl (3.4-5.0); BLOOD UREA NITROGEN 12.5 mg/dL (7-18); MAGNESIUM 2.5 mg/dL (1.8-2.4)
[2022-07-30 10:31] LABS: CREATININE 0.3 mg/dL (0.55-1.3)
[2022-07-30 10:33] LABS: BILIRUBIN,TOTAL 0.2 mg/dL (0.2-1); TOT PROT 7.1 g/dl (6.4-8.2)
[2022-07-30] MEDS: ASCORBIC ACID 500 MG/5 ML UNIT DOSE CUP GT SCH ×2 (10:56→22:31)
[2022-07-30] MEDS: INSULIN SLIDING SCALE (NOVOLOG) 1 VIAL SQ SCH ×4 (11:18→22:27)
[2022-07-30] MEDS ORDERED: SENNOSIDES 8.8 MG/5 ML BULK BOTTLE GT PRN (15:54)
[2022-07-30] MEDS ORDERED: TACROLIMUS 0.1% TP PRN (16:43)
[2022-07-30] MEDS: DOCUSATE NA 100 MG/10 ML UNIT-DOSE CUPS GT SCH (22:19)
[2022-07-30] MEDS: FAMOTIDINE 40 MG/5 ML ORAL SUSPENSION GT SCH (22:20)
[2022-07-30] MEDS: LACTOBACILLUS ACIDOPHILUS 1 TABLET GT SCH (22:20)
[2022-07-30] MEDS: PERAMPANEL 2 MG GT SCH (22:44)
[2022-07-31] MEDS: CHOLECALCIFEROL (VIT D SOLUTION) 400 UNIT/1 ML DROPS GT SCH ×3 (00:37→22:55)
[2022-07-31] MEDS: MEROPENEM 1 GM in DEXTROSE 5%-WATER 100 ML IVPB SCH ×3 (02:15→10:10)
[2022-07-31] MEDS: levOCARNitine 500 MG/5 ML SOLUTION GT SCH ×3 (06:17→22:55)
[2022-07-31] MEDS: LEVOTHYROXINE NA 75 MCG TABLET (FP) PEG SCH (06:17)
[2022-07-31] MEDS: INSULIN SLIDING SCALE (NOVOLOG) 1 VIAL SQ SCH ×4 (06:17→21:07)
[2022-07-31] MEDS: IPRATROPIUM BR 0.02% 0.5 MG/2.5 ML VIAL.NEB. NEB SCH ×4 (07:55→20:00)
[2022-07-31 09:34] LABS: BASO % 0.5 % (0-2.0); EOS % 3.2 % (0-4.5); HEMATOCRIT 40.9 % (32.4-45.2); LYMPH % 25.2 % (8-40); MCH 30.4 pg (25.7-33.7); MCHC 34.4 g/dl (32.0-36.0); MEAN CELL VOLUME 88.4 fl (80-96); MEAN PLT VOLUME 6.9 fl (7.5-11.1); MONO % 12.5 % (3.8-10.2); NEUT % 58.6 % (42.8-82.8); PLATELET COUNT 355 10^3/uL (134-434); RBC 4.62 M/mm3 (3.60-5.2); WHITE BLOOD COUNT 4.9 K/mm3 (4.0-10.0)
[2022-07-31] MEDS: THIAMINE HCL 100 MG TABLET (FP) NGT SCH (10:03)
[2022-07-31] MEDS: FERROUS SO4 15 MG/ML *PEDIATRIC* ORAL SOLN- 50ML BTL GT SCH (10:07)
[2022-07-31] MEDS: CLOTRIMAZOLE 1% CREAM TP SCH ×2 (10:08→22:57)
[2022-07-31] MEDS: ENOXAPARIN NA (PORCINE) 40 MG/0.4 ML DISP.SYRIN SQ SCH (10:09)
[2022-07-31] MEDS: Lacosamide 50 MG/5 ML ORAL SOLUTION UNIT CUPS GT SCH ×2 (10:10→22:54)
[2022-07-31 10:23] LABS: BLOOD UREA NITROGEN 18.6 mg/dL (7-18); MAGNESIUM 2.3 mg/dL (1.8-2.4)
[2022-07-31 10:26] LABS: CREATININE 0.4 mg/dL (0.55-1.3); PHOSPHOROUS 3.2 mg/dL (2.5-4.9)
[2022-07-31 10:27] LABS: BILIRUBIN,TOTAL 0.4 mg/dL (0.2-1); TOT PROT 7.2 g/dl (6.4-8.2)
[2022-07-31] MEDS: ASCORBIC ACID 500 MG/5 ML UNIT DOSE CUP GT SCH ×2 (10:48→22:55)
[2022-07-31] MEDS: LACTOBACILLUS ACIDOPHILUS 1 TABLET GT SCH (22:54)
[2022-07-31] MEDS: DOCUSATE NA 100 MG/10 ML UNIT-DOSE CUPS GT SCH (22:54)
[2022-07-31] MEDS: PERAMPANEL 2 MG GT SCH (22:56)
[2022-07-31] MEDS: FAMOTIDINE 40 MG/5 ML ORAL SUSPENSION GT SCH (22:56)
[2022-08-01] MEDS: levOCARNitine 500 MG/5 ML SOLUTION GT SCH ×2 (06:56→14:30)
[2022-08-01] MEDS: LEVOTHYROXINE NA 75 MCG TABLET (FP) PEG SCH (06:56)
[2022-08-01] MEDS: INSULIN SLIDING SCALE (NOVOLOG) 1 VIAL SQ SCH ×2 (07:03→11:14)
[2022-08-01] MEDS: IPRATROPIUM BR 0.02% 0.5 MG/2.5 ML VIAL.NEB. NEB SCH ×2 (07:53→11:30)
[2022-08-01 08:23] VITALS: BP 99/63; PULSE 102; RESP 20; TEMP 98.5
[2022-08-01] MEDS: ENOXAPARIN NA (PORCINE) 40 MG/0.4 ML DISP.SYRIN SQ SCH (09:28)
[2022-08-01] MEDS: Lacosamide 50 MG/5 ML ORAL SOLUTION UNIT CUPS GT SCH (09:28)
[2022-08-01] MEDS: THIAMINE HCL 100 MG TABLET (FP) NGT SCH (09:29)
[2022-08-01] MEDS: FERROUS SO4 15 MG/ML *PEDIATRIC* ORAL SOLN- 50ML BTL GT SCH (09:29)
[2022-08-01] MEDS: CHOLECALCIFEROL (VIT D SOLUTION) 400 UNIT/1 ML DROPS GT SCH (09:29)
[2022-08-01] MEDS: ASCORBIC ACID 500 MG/5 ML UNIT DOSE CUP GT SCH (09:30)
[2022-08-01 10:57] LABS: BASO % 0.5 % (0-2.0); EOS % 2.1 % (0-4.5); HEMATOCRIT 43.9 % (32.4-45.2); HEMOGLOBIN 14.8 GM/dL (10.7-15.3); LYMPH % 36.2 % (8-40); MCH 30.1 pg (25.7-33.7); MCHC 33.7 g/dl (32.0-36.0); MEAN CELL VOLUME 89.1 fl (80-96); MEAN PLT VOLUME 7.6 fl (7.5-11.1); MONO % 7.6 % (3.8-10.2); NEUT % 53.6 % (42.8-82.8); RBC 4.93 M/mm3 (3.60-5.2); RDW 11.8 % (11.6-15.6); WHITE BLOOD COUNT 4.7 K/mm3 (4.0-10.0)
[2022-08-01] MEDS: CLOTRIMAZOLE 1% CREAM TP SCH (11:10)
[2022-08-01 11:26] LABS: ALBUMIN 3.1 g/dl (3.4-5.0); BILIRUBIN,TOTAL 0.2 mg/dL (0.2-1); BLOOD UREA NITROGEN 20.6 mg/dL (7-18); CALCIUM 9.2 mg/dL (8.5-10.1); CREATININE 0.4 mg/dL (0.55-1.3); MAGNESIUM 2.2 mg/dL (1.8-2.4); PHOSPHOROUS 3.3 mg/dL (2.5-4.9); TOT PROT 7.5 g/dl (6.4-8.2)
== END 2022-08-01 14:30 | disposition home or self-care (01) | DRG 689 ==
LOC: JER 15:02 → JERBED 18:33 → J6S 07-26 02:40
PROVIDERS: ADMIT Internal Medicine; ATTEND Internal Medicine
PROC: 3E0G76Z Introduction of Nutritional Substance into Upper GI, Via Natural or Artificial Opening (ICD-10-PCS; principal; 2022-07-25)
DX: N39.0 Urinary tract infection, site not specified (principal); R53.2 Functional quadriplegia; G31.82 Leigh's disease; F73 Profound intellectual disabilities; E11.9 Type 2 diabetes mellitus without complications; G40.909 Epilepsy, unspecified, not intractable, without status epilepticus; G80.9 Cerebral palsy, unspecified; E03.9 Hypothyroidism, unspecified; E06.3 Autoimmune thyroiditis; M41.9 Scoliosis, unspecified; L30.4 Erythema intertrigo; K59.09 Other constipation; L30.9 Dermatitis, unspecified; B96.20 Unspecified Escherichia coli [E. coli] as the cause of diseases classified elsewhere; K31.89 Other diseases of stomach and duodenum
CPT/HCPCS: 0241U-QW; 36415; 80053; 81003; 82962; 83735; 84100; 85025; 85027; 87040; 87086; 87186; 93005; 93010; 94640; 99285-25

== ENCOUNTER 2023-11-20 19:07 | Emergency (ER) | payer OTHER ==
[2023-11-20 19:39] VITALS: BP 134/80; PULSE 74; RESP 18; TEMP 95.7; BMI 29.7
[2023-11-20 20:45] LABS: BASO % 0.3 % (0-2.0); EOS % 3.3 % (0-4.5); HEMATOCRIT 41.9 % (32.4-45.2); HEMOGLOBIN 14.4 GM/dL (10.7-15.3); LYMPH % 27.1 % (8-40); MCH 30.4 pg (25.7-33.7); MCHC 34.3 g/dl (32.0-36.0); MEAN CELL VOLUME 88.7 fl (80-96); MEAN PLT VOLUME 7.3 fl (7.5-11.1); NEUT % 54.3 % (42.8-82.8); PLATELET COUNT 301 10^3/uL (134-434); RBC 4.73 M/mm3 (3.60-5.2); RDW 12.8 % (11.6-15.6); WHITE BLOOD COUNT 4.5 K/mm3 (4.0-10.0)
[2023-11-20 20:57] LABS: POTASSIUM 3.8 mmol/L (3.5-5.1)
[2023-11-20 21:00] LABS: ALBUMIN 3.3 g/dl (3.4-5.0); BLOOD UREA NITROGEN 8.9 mg/dL (7-18)
[2023-11-20 21:03] LABS: CREATININE 0.3 mg/dL (0.55-1.3)
[2023-11-20 21:04] LABS: TOT PROT 7.4 g/dl (6.4-8.2)
[2023-11-20 21:05] LABS: BILIRUBIN,TOTAL 0.4 mg/dL (0.2-1)
== END 2023-11-20 23:00 | disposition home or self-care (01) ==
LOC: JER 19:07
DX: K92.1 Melena (principal)
CPT/HCPCS: 36415; 80053; 82272; 85025; 86850; 86900; 86901; 99283-25

== ENCOUNTER 2023-11-22 22:03 | Emergency (ER) | payer OTHER ==
[2023-11-22 22:16] VITALS: BP 100/71; PULSE 104; RESP 20; TEMP 98; BMI 26.7
[2023-11-23 00:49] LABS: BASO % 0.6 % (0-2.0); EOS % 1.5 % (0-4.5); HEMATOCRIT 36.8 % (32.4-45.2); HEMOGLOBIN 12.4 GM/dL (10.7-15.3); LYMPH % 32.4 % (8-40); MCH 30.2 pg (25.7-33.7); MCHC 33.7 g/dl (32.0-36.0); MEAN CELL VOLUME 89.4 fl (80-96); MEAN PLT VOLUME 7.1 fl (7.5-11.1); MONO % 16.7 % (3.8-10.2); NEUT % 48.8 % (42.8-82.8); PLATELET COUNT 288 10^3/uL (134-434); RBC 4.11 M/mm3 (3.60-5.2); RDW 12.6 % (11.6-15.6); WHITE BLOOD COUNT 4.4 K/mm3 (4.0-10.0)
== END 2023-11-23 01:45 | disposition home or self-care (01) ==
LOC: JER 22:03
DX: K62.5 Hemorrhage of anus and rectum (principal)
CPT/HCPCS: 36415; 82272; 85025; 99283-25

== ENCOUNTER 2025-06-27 06:18 | Inpatient (IN) | payer OTHER ==
[2025-06-27 07:27] LABS: BG HCT 44.0 % (32.4-45.2); VENOUS BASE EXCESS -5.9 mmol/L (-2-2); VENOUS O2 SATURATION 92.2 % (70-80); VENOUS PCO2 57.4 mmHg (38-52); VENOUS PH 7.216 (7.310-7.410)
[2025-06-27] MEDS: SODIUM CHLORIDE 0.9% 500 ML INFUS.BAG IV ONE (07:29)
[2025-06-27] MEDS ORDERED: ALBUTEROL SO4 2.5/IPRATROPIUM 0.5 INH SOL 3 ML VIAL.NEB. NEB ONE (07:30)
[2025-06-27] MEDS: ALBUTEROL SO4 2.5/IPRATROPIUM 0.5 INH SOL 3 ML VIAL.NEB. NEB ONE (07:33)
[2025-06-27 07:35] LABS: ABSOLUTE IMMATURE GRANULOCYTES 0.10 x10^3/uL (0.0-0.031); BASOPHILS # 0.02 x10^3/uL (0.01-0.08); EOSINOPHIL % 0.1 % (0.7-5.8); EOSINOPHILS # 0.02 x10^3/uL (0.04-0.36); MCHC 33.2 g/dl (32.2-35.5); MEAN CELL VOLUME 91.3 fl (79.4-94.8); MEAN PLT VOLUME 10.2 fl (9.4-12.3); MONOCYTE # 1.05 x10^3/uL (0.24-0.86); MONOCYTE % 6.4 % (4.7-12.5); RDW 11.9 % (12.1-16.8)
[2025-06-27 07:49] LABS: GLUCOSE,RANDOM 201 mg/dL (74-106); TOT PROT 6.8 g/dl (6.4-8.2)
[2025-06-27 07:50] LABS: CO2 22 mmol/L (21-32)
[2025-06-27 07:51] LABS: ALK PHOS 74 U/L (40-150)
[2025-06-27 07:54] LABS: SGOT/AST 211 U/L (5-34); SGPT/ALT 45 U/L (0-55)
[2025-06-27 07:55] LABS: CREATININE 0.28 mg/dL (0.55-1.3)
[2025-06-27 08:09] LABS: INR 1.24 (0.83-1.09); PROTHROMBIN TIME (PATIENT) 13.5 SEC (9.7-13.0)
[2025-06-27 08:12] LABS: ACTIVATED PTT 33.7 SECONDS (25.2-36.5)
[2025-06-27 09:24] LABS: URINE APPEARANCE CLEAR; URINE BILIRUBIN NEGATIVE (NEGATIVE); URINE COLOR YELLOW; URINE GLUCOSE (UA) NEGATIVE (NEGATIVE); URINE KETONE 1+ (NEGATIVE); URINE LEUK ESTERASE NEGATIVE (NEGATIVE); URINE NITRITE NEGATIVE (NEGATIVE); URINE PROTEIN NEGATIVE (NEGATIVE); URINE UROBILINOGEN 0.2 mg/dL (0.2-1.0)
[2025-06-27 09:26] LABS: HCG,QUALITATIVE URINE Negative
[2025-06-27] MEDS ORDERED: MEROPENEM 1 GM VIAL (RESTRICTED TO ID) IVPB ONE (09:34)
[2025-06-27] MEDS ORDERED: VANCOMYCIN 1 GM PREMIX (F) 1 GM/200 ML BAG ONE (09:34)
[2025-06-27 09:38] LABS: URINE UREA NITROGEN 909 mg/dL (350-1000)
[2025-06-27 10:15] LABS: EPI CELLS 5 /uL (0-25.1); HYALINE CASTS 1 /uL (0-3.1); URINE APPEARANCE CLEAR; URINE BACTERIA 6 /uL (0-1359); URINE BILIRUBIN NEGATIVE (NEGATIVE); URINE COLOR YELLOW; URINE GLUCOSE (UA) NEGATIVE (NEGATIVE); URINE KETONE 1+ (NEGATIVE); URINE LEUK ESTERASE TRACE (NEGATIVE); URINE NITRITE NEGATIVE (NEGATIVE); URINE PROTEIN NEGATIVE (NEGATIVE); URINE RBC 12 /uL (0-23.9); URINE UROBILINOGEN 0.2 mg/dL (0.2-1.0); URINE WBC 14 /uL (0-25.8)
[2025-06-27] MEDS: MEROPENEM 1 GM in DEXTROSE 5%-WATER 100 ML IVPB ONE (11:10)
[2025-06-27 11:29] LABS: GLUCOSE,RANDOM 131 mg/dL (74-106)
[2025-06-27] MEDS: VANCOMYCIN 1 GM PREMIX (F) 1 GM/200 ML BAG IVPB ONE (11:30)
[2025-06-27 11:31] LABS: CO2 23 mmol/L (21-32)
[2025-06-27 11:35] LABS: CREATININE 0.24 mg/dL (0.55-1.3)
[2025-06-27] MEDS: VANCOMYCIN 500 MG in DEXTROSE 5%-WATER 100 ML IVPB SCH (15:51)
[2025-06-27] MEDS: Lacosamide 50 MG/5 ML ORAL SOLUTION UNIT CUPS GT SCH (17:01)
[2025-06-27] MEDS: MEROPENEM 1 GM in DEXTROSE 5%-WATER 100 ML IVPB SCH (17:01)
[2025-06-27] MEDS ORDERED: ACETAMINOPHEN 650 MG/20.3 ML ORAL SOLUTION (CUPS) GT PRN (17:29)
[2025-06-27] MEDS: IPRATROPIUM BR 0.02% 0.5 MG/2.5 ML VIAL.NEB. NEB SCH (18:04)
[2025-06-27 18:12] LABS: GLUCOSE,RANDOM 106.0 mg/dL (74-106)
[2025-06-27 18:13] LABS: CO2 25.0 mmol/L (21-32)
[2025-06-27 18:17] LABS: CREATININE 0.3 mg/dL (0.55-1.3)
[2025-06-27] MEDS: PIMECROLIMUS 1% TP SCH (19:41)
[2025-06-27] MEDS: PERAMPANEL 2 MG GT SCH (20:04)
[2025-06-27] MEDS: CHOLECALCIFEROL (VIT D3) 1,000 UNIT (25 MCG) TABLET GT SCH (21:18)
[2025-06-27] MEDS: ASCORBIC ACID 500 MG/5 ML UNIT DOSE CUP GT SCH (21:18)
[2025-06-27] MEDS: MAGNESIUM HYDROX 2400MG/30ML ORAL SUSPENSION 30 ML CUP GT SCH (21:18)
[2025-06-27] MEDS: CHLORHEXIDINE GLUCONATE 4% CLEANSER FOR DECOLONIZATION TP SCH (21:20)
[2025-06-27] MEDS: MUPIROCIN 2% TOPICAL OINTMENT FOR DECOLONIZATION NS SCH (21:20)
[2025-06-27] MEDS: FAMOTIDINE 20 MG/2.5 ML ORAL LIQUID NGT SCH (21:21)
[2025-06-28 00:03] LABS: GLUCOSE,RANDOM 107.0 mg/dL (74-106)
[2025-06-28 00:05] LABS: CO2 25.0 mmol/L (21-32)
[2025-06-28 00:09] LABS: CREATININE 0.27 mg/dL (0.55-1.3)
[2025-06-28] MEDS: LEVOTHYROXINE NA 75 MCG TABLET (FP) GT SCH (06:31)
[2025-06-28 06:59] LABS: ABSOLUTE IMMATURE GRANULOCYTES 0.01 x10^3/uL (0.0-0.031); BASOPHILS # 0.01 x10^3/uL (0.01-0.08); EOSINOPHIL % 1.0 % (0.7-5.8); EOSINOPHILS # 0.05 x10^3/uL (0.04-0.36); MCHC 33.2 g/dl (32.2-35.5); MEAN CELL VOLUME 89.5 fl (79.4-94.8); MEAN PLT VOLUME 9.9 fl (9.4-12.3); MONOCYTE # 0.77 x10^3/uL (0.24-0.86); MONOCYTE % 15.3 % (4.7-12.5); RDW 11.9 % (12.1-16.8)
[2025-06-28 07:09] LABS: INR 1.21 (0.83-1.09); PROTHROMBIN TIME (PATIENT) 13.2 SEC (9.7-13.0)
[2025-06-28 07:12] LABS: ACTIVATED PTT 33.1 SECONDS (25.2-36.5)
[2025-06-28] MEDS: Lacosamide 50 MG/5 ML ORAL SOLUTION UNIT CUPS GT SCH (07:18)
[2025-06-28 07:22] LABS: GLUCOSE,RANDOM 91.0 mg/dL (74-106); TOT PROT 6.3 g/dl (6.4-8.2)
[2025-06-28 07:23] LABS: CO2 25.0 mmol/L (21-32)
[2025-06-28 07:24] LABS: ALK PHOS 62.0 U/L (40-150)
[2025-06-28 07:27] LABS: SGOT/AST 111.0 U/L (5-34); SGPT/ALT 32.0 U/L (0-55)
[2025-06-28 07:28] LABS: CREATININE 0.29 mg/dL (0.55-1.3)
[2025-06-28] MEDS: ENOXAPARIN NA (PORCINE) 40 MG/0.4 ML DISP.SYRIN SQ SCH (10:07)
[2025-06-28] MEDS: THIAMINE 100 MG TABLET GT SCH (10:07)
[2025-06-28] MEDS: DEXTROSE 5%-WATER 500 ML PVC-FREE INFUS.BAG IV ONE (11:03)
[2025-06-28 12:47] VITALS: BMI 16.2
[2025-06-28] MEDS: MEROPENEM 1 GM in DEXTROSE 5%-WATER 100 ML IVPB SCH ×2 (16:24→17:36)
[2025-06-28] MEDS: VANCOMYCIN 500 MG in DEXTROSE 5%-WATER - 100 ML IVPB SCH (16:25)
[2025-06-28 19:46] LABS: GLUCOSE,RANDOM 134.0 mg/dL (74-106)
[2025-06-28 19:47] LABS: CO2 27.0 mmol/L (21-32); CREATININE 0.26 mg/dL (0.55-1.3)
[2025-06-28 22:21] LABS: GLUCOSE,RANDOM 83.0 mg/dL (74-106)
[2025-06-28 22:22] LABS: CO2 27.0 mmol/L (21-32)
[2025-06-28 22:26] LABS: CREATININE 0.19 mg/dL (0.55-1.3)
[2025-06-29 07:23] LABS: ABSOLUTE IMMATURE GRANULOCYTES 0.01 x10^3/uL (0.0-0.031); BASOPHILS # 0.01 x10^3/uL (0.01-0.08); EOSINOPHIL % 1.0 % (0.7-5.8); EOSINOPHILS # 0.05 x10^3/uL (0.04-0.36); MCHC 31.4 g/dl (32.2-35.5); MEAN CELL VOLUME 95.3 fl (79.4-94.8); MEAN PLT VOLUME 10.0 fl (9.4-12.3); MONOCYTE # 0.67 x10^3/uL (0.24-0.86); MONOCYTE % 13.4 % (4.7-12.5); RDW 11.9 % (12.1-16.8)
[2025-06-29 07:32] LABS: CO2 28.0 mmol/L (21-32)
[2025-06-29 07:36] LABS: CREATININE 0.32 mg/dL (0.55-1.3)
[2025-06-29 07:43] LABS: GLUCOSE,RANDOM 93.0 mg/dL (74-106)
[2025-06-29] MEDS: MUPIROCIN 2% TOPICAL OINTMENT FOR DECOLONIZATION NS SCH (10:00)
[2025-06-29] MEDS: ENOXAPARIN NA (PORCINE) 40 MG/0.4 ML DISP.SYRIN SQ SCH (10:03)
[2025-06-29] MEDS: METOCLOPRAMIDE HCL INJECTION 10 MG/2 ML VIAL IVPUSH SCH (10:04)
[2025-06-29] MEDS: ASCORBIC ACID 500 MG/5 ML UNIT DOSE CUP GT SCH (10:05)
[2025-06-29] MEDS: THIAMINE 100 MG TABLET GT SCH (10:05)
[2025-06-29] MEDS: CHOLECALCIFEROL (VIT D3) 1,000 UNIT (25 MCG) TABLET GT SCH (10:05)
[2025-06-29] MEDS: IPRATROPIUM BR 0.02% 0.5 MG/2.5 ML VIAL.NEB. NEB SCH (11:44)
[2025-06-29] MEDS: Lacosamide 50 MG/5 ML ORAL SOLUTION UNIT CUPS GT SCH (17:50)
[2025-06-29] MEDS: MAGNESIUM HYDROX 2400MG/30ML ORAL SUSPENSION 30 ML CUP GT SCH (21:40)
[2025-06-29] MEDS: CHLORHEXIDINE GLUCONATE 4% CLEANSER FOR DECOLONIZATION TP SCH (21:41)
[2025-06-29] MEDS: PERAMPANEL 2 MG GT SCH (21:56)
[2025-06-29] MEDS: FAMOTIDINE 20 MG/2.5 ML ORAL LIQUID NGT SCH (23:00)
[2025-06-30] MEDS: LEVOTHYROXINE NA 75 MCG TABLET (FP) GT SCH (06:31)
[2025-06-30 07:10] LABS: ABSOLUTE IMMATURE GRANULOCYTES 0.02 x10^3/uL (0.0-0.031); BASOPHILS # 0.01 x10^3/uL (0.01-0.08); EOSINOPHIL % 1.3 % (0.7-5.8); EOSINOPHILS # 0.07 x10^3/uL (0.04-0.36); MCHC 32.8 g/dl (32.2-35.5); MEAN CELL VOLUME 91.3 fl (79.4-94.8); MEAN PLT VOLUME 9.6 fl (9.4-12.3); MONOCYTE # 0.86 x10^3/uL (0.24-0.86); MONOCYTE % 16.1 % (4.7-12.5); RDW 11.7 % (12.1-16.8)
[2025-06-30 07:27] LABS: GLUCOSE,RANDOM 92.0 mg/dL (74-106); TOT PROT 6.1 g/dl (6.4-8.2)
[2025-06-30 07:28] LABS: CO2 31.0 mmol/L (21-32)
[2025-06-30 07:30] LABS: ALK PHOS 62.0 U/L (40-150)
[2025-06-30 07:33] LABS: CREATININE 0.34 mg/dL (0.55-1.3); SGOT/AST 34.0 U/L (5-34); SGPT/ALT 21.0 U/L (0-55)
[2025-06-30] MEDS: SENNOSIDES 8.8 MG/5 ML SYRUP GT ONE (16:36)
[2025-07-01 07:31] LABS: ABSOLUTE IMMATURE GRANULOCYTES 0.02 x10^3/uL (0.0-0.031); BASOPHILS # 0.02 x10^3/uL (0.01-0.08); EOSINOPHIL % 1.7 % (0.7-5.8); EOSINOPHILS # 0.12 x10^3/uL (0.04-0.36); MCHC 32.4 g/dl (32.2-35.5); MEAN CELL VOLUME 92.2 fl (79.4-94.8); MEAN PLT VOLUME 9.3 fl (9.4-12.3); MONOCYTE # 0.69 x10^3/uL (0.24-0.86); MONOCYTE % 9.6 % (4.7-12.5); RDW 11.8 % (12.1-16.8)
[2025-07-01 07:49] LABS: GLUCOSE,RANDOM 92.0 mg/dL (74-106); TOT PROT 6.5 g/dl (6.4-8.2)
[2025-07-01 07:50] LABS: CO2 28.0 mmol/L (21-32)
[2025-07-01 07:52] LABS: ALK PHOS 64.0 U/L (40-150)
[2025-07-01 07:54] LABS: SGPT/ALT 22.0 U/L (0-55)
[2025-07-01 07:55] LABS: CREATININE 0.32 mg/dL (0.55-1.3); SGOT/AST 31.0 U/L (5-34)
[2025-07-02 06:59] LABS: ABSOLUTE IMMATURE GRANULOCYTES 0.01 x10^3/uL (0.0-0.031); BASOPHILS # 0.01 x10^3/uL (0.01-0.08); EOSINOPHIL % 4.8 % (0.7-5.8); EOSINOPHILS # 0.24 x10^3/uL (0.04-0.36); MCHC 32.8 g/dl (32.2-35.5); MEAN CELL VOLUME 93.2 fl (79.4-94.8); MEAN PLT VOLUME 9.4 fl (9.4-12.3); MONOCYTE # 0.55 x10^3/uL (0.24-0.86); MONOCYTE % 11.0 % (4.7-12.5); RDW 11.7 % (12.1-16.8)
[2025-07-02 07:43] LABS: GLUCOSE,RANDOM 104.0 mg/dL (74-106)
[2025-07-02 07:44] LABS: TOT PROT 6.5 g/dl (6.4-8.2)
[2025-07-02 07:45] LABS: CO2 27.0 mmol/L (21-32)
[2025-07-02 07:47] LABS: ALK PHOS 63.0 U/L (40-150)
[2025-07-02 07:49] LABS: SGOT/AST 30.0 U/L (5-34); SGPT/ALT 24.0 U/L (0-55)
[2025-07-02 07:50] LABS: CREATININE 0.26 mg/dL (0.55-1.3)
[2025-07-02] MEDS: ACETAMINOPHEN 650 MG/20.3 ML ORAL SOLUTION (CUPS) GT PRN (10:38)
[2025-07-02] MEDS: SENNOSIDES 8.8 MG/5 ML SYRUP GT PRN (21:13)
[2025-07-03 06:53] LABS: ABSOLUTE IMMATURE GRANULOCYTES 0.01 x10^3/uL (0.0-0.031); BASOPHILS # 0.01 x10^3/uL (0.01-0.08); EOSINOPHIL % 4.7 % (0.7-5.8); EOSINOPHILS # 0.21 x10^3/uL (0.04-0.36); MCHC 32.4 g/dl (32.2-35.5); MEAN CELL VOLUME 91.8 fl (79.4-94.8); MEAN PLT VOLUME 9.4 fl (9.4-12.3); MONOCYTE # 0.57 x10^3/uL (0.24-0.86); MONOCYTE % 12.8 % (4.7-12.5); RDW 11.5 % (12.1-16.8)
[2025-07-03 07:09] LABS: GLUCOSE,RANDOM 90.0 mg/dL (74-106); TOT PROT 6.5 g/dl (6.4-8.2)
[2025-07-03 07:10] LABS: CO2 27.0 mmol/L (21-32)
[2025-07-03 07:12] LABS: ALK PHOS 61.0 U/L (40-150)
[2025-07-03 07:14] LABS: SGPT/ALT 24.0 U/L (0-55)
[2025-07-03 07:15] LABS: SGOT/AST 26.0 U/L (5-34)
[2025-07-03 07:17] LABS: CREATININE 0.26 mg/dL (0.55-1.3)
[2025-07-03] MEDS ORDERED: FUROSEMIDE 40 MG/5 ML UNIT-DOSE CUP GT SCH (10:00)
[2025-07-03] MEDS: FUROSEMIDE 40 MG/5 ML UNIT-DOSE CUP GT ONE (10:19)
[2025-07-03] MEDS ORDERED: SENNOSIDES 8.8 MG/5 ML SYRUP GT PRN (17:02)
[2025-07-03] MEDS ORDERED: ACETAMINOPHEN 650 MG/20.3 ML ORAL SOLUTION (CUPS) GT PRN (17:02)
[2025-07-03] MEDS: Lacosamide 50 MG/5 ML ORAL SOLUTION UNIT CUPS GT SCH (19:00)
[2025-07-03] MEDS: IPRATROPIUM BR 0.02% 0.5 MG/2.5 ML VIAL.NEB. NEB SCH (20:45)
[2025-07-03] MEDS: PERAMPANEL 2 MG GT SCH (20:55)
[2025-07-03] MEDS: MAGNESIUM HYDROX 2400MG/30ML ORAL SUSPENSION 30 ML CUP GT SCH (21:55)
[2025-07-03] MEDS: ASCORBIC ACID 500 MG/5 ML UNIT DOSE CUP GT SCH (21:55)
[2025-07-03] MEDS: CHOLECALCIFEROL (VIT D3) 1,000 UNIT (25 MCG) TABLET GT SCH (21:56)
[2025-07-03] MEDS ORDERED: CHLORHEXIDINE GLUCONATE 4% CLEANSER FOR DECOLONIZATION TP SCH (22:00)
[2025-07-03] MEDS: FAMOTIDINE 20 MG/2.5 ML ORAL LIQUID NGT SCH (22:38)
[2025-07-04] MEDS: LEVOTHYROXINE NA 75 MCG TABLET (FP) GT SCH (06:02)
[2025-07-04 08:31] LABS: MCHC 32.1 g/dl (32.2-35.5); MEAN CELL VOLUME 94.0 fl (79.4-94.8); MEAN PLT VOLUME 9.9 fl (9.4-12.3); RDW 11.8 % (12.1-16.8)
[2025-07-04 09:19] LABS: GLUCOSE,RANDOM 89.0 mg/dL (74-106)
[2025-07-04 09:20] LABS: TOT PROT 6.6 g/dl (6.4-8.2)
[2025-07-04 09:21] LABS: CO2 28.0 mmol/L (21-32)
[2025-07-04 09:22] LABS: ALK PHOS 63.0 U/L (40-150)
[2025-07-04 09:25] LABS: CREATININE 0.36 mg/dL (0.55-1.3); SGOT/AST 31.0 U/L (5-34); SGPT/ALT 27.0 U/L (0-55)
[2025-07-04] MEDS: FUROSEMIDE 40 MG/5 ML UNIT-DOSE CUP GT SCH (10:27)
[2025-07-04] MEDS: ENOXAPARIN NA (PORCINE) 40 MG/0.4 ML DISP.SYRIN SQ SCH (10:28)
[2025-07-04] MEDS: THIAMINE 100 MG TABLET GT SCH (10:29)
[2025-07-04 13:02] VITALS: RESP 18
[2025-07-04 14:32] VITALS: BP 93/69; PULSE 98; TEMP 97.7
== END 2025-07-04 14:53 | disposition home or self-care (01) | DRG 291 ==
LOC: JER 06:18 → JERBED 09:06 → JICU 12:27 → J2W 06-28 15:40 → J8W 07-03 16:30
PROVIDERS: ADMIT Internal Medicine Pulmonary Disease; ATTEND Nurse Practitioner Family
DX: I11.0 Hypertensive heart disease with heart failure (principal); E43 Unspecified severe protein-calorie malnutrition; G80.0 Spastic quadriplegic cerebral palsy; I50.23 Acute on chronic systolic (congestive) heart failure; J96.01 Acute respiratory failure with hypoxia; J18.9 Pneumonia, unspecified organism; G31.82 Leigh's disease; F73 Profound intellectual disabilities; E87.1 Hypo-osmolality and hyponatremia; I24.89 Other forms of acute ischemic heart disease; J81.1 Chronic pulmonary edema; Z68.1 Body mass index [BMI] 19.9 or less, adult; L30.9 Dermatitis, unspecified; G80.9 Cerebral palsy, unspecified; E87.5 Hyperkalemia; K31.89 Other diseases of stomach and duodenum; K59.00 Constipation, unspecified; I34.0 Nonrheumatic mitral (valve) insufficiency; G40.909 Epilepsy, unspecified, not intractable, without status epilepticus; L89.151 Pressure ulcer of sacral region, stage 1; L89.616 Pressure-induced deep tissue damage of right heel; M41.80 Other forms of scoliosis, site unspecified; K21.9 Gastro-esophageal reflux disease without esophagitis; E06.3 Autoimmune thyroiditis; N31.9 Neuromuscular dysfunction of bladder, unspecified; Z88.0 Allergy status to penicillin
CPT/HCPCS: 36415; 71045-TC-FY; 71275-TC; 80048; 80053; 80069; 81003; 82533; 82570; 82803; 83605; 83735; 83880; 83930; 83935; 84100; 84300; 84443; 84484; 84540; 84703; 85025; 85379; 85610; 85730; 86850; 86900; 86901; 87040; 87086; 87481; 87637-QW; 87899; 93005; 93010; 93306-TC; 94640; 94660; 99291; G0480; Q9967